=== PATIENT | male | born 1980 | race Two or more races ===

== ENCOUNTER 2016-12-23 12:46 | Inpatient (IN) | payer OTHER ==
[~2016-12-23] VITALS: Ht 180.3 cm; Wt 172.8 kg
[~2016-12-23 12:46] MED LIST: ATOR10TA PO; BLOO-697 IN; DABI150C PO; DIGO125T PO; DILT60TA19 PO; METF500T4 PO; METO25TA6 PO
--- NOTE | 2016-12-23 12:49 | NUR ---
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 PER RESCUE, PT WAS AFIB ON MONITOR DURING TRANSPORT. CP 9/10 SHARP RADIATING TO L ARM, NON-PROVOKED. RESP EVEN UNLABORED. SKIN WARM NONDIAPHORETIC. PT DOES NOT APPEAR IN ACUTE DISTRESS, A/OX4, CALM AND COOPERATIVE. IN ER BED 12 ON MONITOR.
[2016-12-23] MEDS ORDERED: ASPIRIN 81 MG TAB.CHEW ONE ×2 (12:55→13:09)
[2016-12-23] MEDS ORDERED: ONDANSETRON 4 MG TAB.RAPDIS SL ONE (13:00)
[2016-12-23] MEDS ORDERED: ASPIRIN 81 MG TAB.CHEW PO ONE (13:00)
[2016-12-23] MEDS ORDERED: MORPHINE SULFATE INJ 4 MG/ML DISP.SYRIN ONE (13:12)
[2016-12-23 13:22] LABS: BASOPHILS # (AUTO) 0.1 /CMM (0.0-0.2); EOSINOPHILS # (AUTO) 0.1 /CMM (0.0-0.7); EOSINOPHILS % (AUTO) 1.5 % (0.0-6.0); HEMATOCRIT 46 % (39-51); HEMOGLOBIN 15.1 g/dL (13.5-17.5); LYMPHOCYTES # (AUTO) 2.2 /CMM (0.8-4.8); MEAN CORPUSCULAR HEMOGLOBIN 28 PG (26.0-33.0); MEAN CORPUSCULAR HGB CONC 33 g/dl (31.0-36.0); MEAN CORPUSCULAR VOLUME 85 fL (80-96); MONOCYTES # (AUTO) 0.6 /CMM (0.1-1.30); MONOCYTES % (AUTO) 8.5 % (2.0-12.0); NEUTROPHILS # (AUTO) 3.6 /CMM (1.8-8.9); PLATELET COUNT (AUTO) 205 /CMM (150-450); RDW COEFFICIENT OF VARIATION 14.4 (11.5-15.0); RED BLOOD CELL COUNT(AUTO) 5.39 MIL/uL (4.5-6.0); WHITE BLOOD COUNT (AUTO) 6.6 K/uL (4.3-11.0)
[2016-12-23 13:28] LABS: CALCIUM, SERUM 8.6 mg/dL (8.5-10.1); CARBON DIOXIDE 29 mmol/L (21-32); CHLORIDE 101 mmol/L (98-107); CREATININE 0.8 mg/dL (0.6-1.3); GFR 110 mL/min (>60); GLUCOSE 283 mg/dL (74-106); POTASSIUM 3.9 mmol/L (3.5-5.1); SODIUM SERUM 136 mmol/L (136-145); UREA NITROGEN, BLOOD 7 mg/dL (7-18)
[2016-12-23] MEDS ORDERED: MORPHINE SULFATE INJ 2 MG/ML DISP.SYRIN IV ONE (13:30)
[2016-12-23 13:32] LABS: INR 1.03 (0.87-1.13); PROTHROMBIN TIME 10.7 SECS (9.5-12.7)
[2016-12-23 13:36] LABS: TROPONIN I < 0.017 ng/mL (0.00-0.056)
[2016-12-23] MEDS ORDERED: ONDANSETRON 4 MG TAB.RAPDIS ONE (13:43)
--- NOTE | 2016-12-23 13:50 | NUR ---
RESTING QUIETLY, VSS. NAD NOTED.
[2016-12-23] MEDS ORDERED: INSULIN REGULAR, HUMAN 100 UNIT/ML 10 ML VIAL SQ ONE (14:00)
[2016-12-23] MEDS ORDERED: INSULIN REGULAR, HUMAN 100 UNIT/ML 10 ML VIAL ONE (14:03)
--- NOTE | 2016-12-23 15:32 | NUR ---
RESTING QUIETLY, NAD NOTED. VSS. ALL NEEDS ATTENDED TO. REPORTS THAT THE PAIN DECREASED AFTER MORPHINE ADMIN BUT RETURNED AGAIN TO SEVERE PAIN OF THE SAME CHARACTER. PA NOTIFIED.
[2016-12-23] MEDS ORDERED: ACETAMINOPHEN ES 500 MG TABLET ONE (16:22)
[2016-12-23] MEDS ORDERED: ACETAMINOPHEN ES 500 MG TABLET PO ONE (16:30)
--- NOTE | 2016-12-23 16:36 | NUR ---
RM 104. CALLED FOR FOOD TRAY.
--- NOTE | 2016-12-23 16:40 | NUR ---
DIANN DANIELSON ON PHONE WITH DR CARVAJAL
[2016-12-23] MEDS ORDERED: ONDA4TAB5 PO (16:44)
[2016-12-23] MEDS ORDERED: PANT20TA2 PO (16:44)
[2016-12-23] MEDS ORDERED: INSU100I4 SQ (16:44)
[2016-12-23] MEDS ORDERED: ATOR20TA PO (16:44)
[2016-12-23] MEDS ORDERED: INSU100I19 SQ (16:44)
--- NOTE | 2016-12-23 17:06 | NUR ---
REPORT GIVEN TO JEAN RN FOR ADMISSION. PER JEAN, ROOM IS NOT CLEAN YET.
--- NOTE | 2016-12-23 17:46 | NUR ---
PT TRANSPORTED TO [facility] 104 IN STABLE CONDITION VIA ACLS PROTOCOL
[2016-12-23] MEDS ORDERED: ZOLPIDEM TARTRATE 5 MG TABLET PO PRN (18:00)
[2016-12-23] MEDS ORDERED: DEXTROSE 50%-WATER 50 ML DISP.SYRIN IV PRN (18:00)
[2016-12-23] MEDS ORDERED: ONDANSETRON HCL/PF 4 MG/2 ML VIAL IVP PRN (18:00)
[2016-12-23] MEDS ORDERED: MAGNESIUM HYDROXIDE 30 ML UDC PO PRN (18:00)
[2016-12-23] MEDS ORDERED: Z GUARD REMEDY 2 OZ OINT TP PRN (18:00)
[2016-12-23] MEDS ORDERED: MAG HYDROX/AL HYDROX/SIMETH 30 ML UDC PO PRN (18:00)
[2016-12-23] MEDS ORDERED: ACETAMINOPHEN 325 MG TABLET PO PRN (18:00)
[2016-12-23 18:01] VITALS: BP 116/84
[2016-12-23] MEDS: BLOOD SUGAR DIAGNOSTIC 1 EACH STRIP IN SCH ×2 (18:46→21:48)
[2016-12-23] MEDS: MORPHINE SULFATE INJ 2 MG/ML DISP.SYRIN IV PRN (18:47)
[2016-12-23] MEDS: INSULIN REGULAR, HUMAN 100 UNIT/ML 3 ML VIAL SQ PRN ×2 (18:52→21:53)
[2016-12-23 19:53] VITALS: BP 104/68
[2016-12-23 20:00] VITALS: BP 104/68
--- NOTE | 2016-12-23 20:00 | NUR ---
GAS DESULFURIZER NOTE PT IN BED EATING SANDWICH. A/O X 4, NO SOB, NO DISTRESS OR DISCOMFORT NOTED. DENIES PAIN. ON TELE A FIB, SR WITH BBB AND PVC'S HR 98. HL IN LT HAND #20 G INTACT AND PATENT. SIDE RAILS UP X 2 AND CALL LIGHT WITHIN REACH. CONTINUE TO MONITOR HIM.
--- NOTE | 2016-12-23 21:01 | NUR ---
STAVE MACHINE TENDER NOTE ON TELE PT HAD VTECH 3 SEC C/O SHARP PAIN. NORCO 5/325 MG PO GIVEN. PT HAD MORPHINE EARLIER. STAT EKG ORDERED ALSO LAB ORDERED. CONTINUE TO MONITOR.
[2016-12-23] MEDS: HYDROCODONE/APAP 5/325MG 1 EACH TABLET PO PRN (21:08)
[2016-12-23] MEDS: DILTIAZEM HCL 30 MG TABLET PO SCH (21:09)
--- NOTE | 2016-12-23 21:14 | NUR ---
QUALITY AUDITOR NOTE PER PT PAIN IS ON AND OFF. ON TELE SR HR 77. CONTINUE TO MONITOR HIM.
[2016-12-23 21:29] LABS: BASOPHILS # (AUTO) 0.1 /CMM (0.0-0.2); BASOPHILS % (AUTO) 0.8 % (0.0-2.0); EOSINOPHILS # (AUTO) 0.1 /CMM (0.0-0.7); EOSINOPHILS % (AUTO) 1.6 % (0.0-6.0); HEMATOCRIT 44 % (39-51); HEMOGLOBIN 14.7 g/dL (13.5-17.5); LYMPHOCYTES # (AUTO) 2.3 /CMM (0.8-4.8); LYMPHOCYTES % (AUTO) 36.3 % (20.0-44.0); MEAN CORPUSCULAR HEMOGLOBIN 29 PG (26.0-33.0); MEAN CORPUSCULAR HGB CONC 33 g/dl (31.0-36.0); MEAN CORPUSCULAR VOLUME 86 fL (80-96); MONOCYTES # (AUTO) 0.4 /CMM (0.1-1.30); MONOCYTES % (AUTO) 5.8 % (2.0-12.0); NEUTROPHILS # (AUTO) 3.6 /CMM (1.8-8.9); NEUTROPHILS % (AUTO) 55.5 % (43.0-81.0); PLATELET COUNT (AUTO) 194 /CMM (150-450); RDW COEFFICIENT OF VARIATION 14.2 (11.5-15.0); RED BLOOD CELL COUNT(AUTO) 5.17 MIL/uL (4.5-6.0); WHITE BLOOD COUNT (AUTO) 6.5 K/uL (4.3-11.0)
[2016-12-23 21:45] LABS: CALCIUM, SERUM 8.3 mg/dL (8.5-10.1); CARBON DIOXIDE 28 mmol/L (21-32); CHLORIDE 101 mmol/L (98-107); GFR 85 mL/min (>60); GLUCOSE 320 mg/dL (74-106); POTASSIUM 3.7 mmol/L (3.5-5.1); SODIUM SERUM 135 mmol/L (136-145); UREA NITROGEN, BLOOD 10 mg/dL (7-18)
[2016-12-23 21:51] LABS: ALANINE AMINOTRANSFERASE 79 U/L (12-78); ALBUMIN 3.1 g/dL (3.4-5.0); ALKALINE PHOSPHATASE 108 U/L (46-116); ASPARTATE AMINOTRANSFERASE 50 U/L (15-37); BILIRUBIN,TOTAL 0.6 mg/dL (0.2-1.0); MAGNESIUM 1.8 mg/dL (1.8-2.4); PHOSPHORUS 3.6 mg/dL (2.5-4.9); TOTAL PROTEIN, SERUM 6.7 g/dL (6.4-8.2)
[2016-12-23 21:53] LABS: TROPONIN I < 0.017 ng/mL (0.00-0.056)
[2016-12-23] MEDS: METOPROLOL TARTRATE 25 MG TABLET PO SCH (22:00)
--- NOTE | 2016-12-23 22:00 | NUR ---
CHEMICAL RADIATION TECHNICIAN NOTE PAIN SUBSIDED 08/14. PT AWAKE. CONTINUE TO MONITOR HIM.
--- NOTE | 2016-12-23 22:30 | NUR ---
RN NOTES: RECEIVED CALL BACK FROM DR MORGAN. INFORMED MD RE PATIENT'S CONDITION OF HAVING AN EPISODE OF VTACH AND CHEST PAIN. CHEST PAIN RATED 7/10 DESCRIBED SHARP, NON RADIATING. INFORMED MD RE RESULT OF STAT EKG, SR WITH BBB. RELAYED CHEM RESULTS WELL. MD WITH ORDER FOR 40 MEQS OF POTASSIUM AND 2 GMS OF MAGNESIUM IV AND JUST TO MANAGE PAIN ORDERED. PRIMARY RN DOMINGO AWARE. ORDERS TO BE CARRIED OUT. CONTINUOUSLY MONITORED PT.
[2016-12-23] MEDS ORDERED: POTASSIUM CHLORIDE 20 MEQ TAB.PRT.SR PO ONE ×2 (22:48→23:00)
[2016-12-23] MEDS ORDERED: Magnesium 1GM/D5W 100ML PREMIX 200 ML IV ONE (22:48)
[2016-12-23] MEDS ORDERED: IV SET PRIMARY PUMP SET 1 EA INFUS.SET MC ONE (22:49)
[2016-12-23] MEDS ORDERED: Magnesium 1GM/D5W 100ML PREMIX PIGGYBACK IV ONE (23:00)
[2016-12-24] VITALS: BP 108/67
[2016-12-24] MEDS ORDERED: Magnesium 1GM/D5W 100ML PREMIX PIGGYBACK IV ONE
[2016-12-24] MEDS: MORPHINE SULFATE INJ 2 MG/ML DISP.SYRIN IV PRN ×4 (01:34→20:55)
--- NOTE | 2016-12-24 01:37 | NUR ---
AMERICAN SIGN LANGUAGE TEACHER NOTE PT C/O CHEST AND ABD PAIN 8/10, DULL ACHING. MORPHINE SULFATE 2 MG IVP GIVEN. CONTINUE TO MONITOR HIM.
--- NOTE | 2016-12-24 02:05 | NUR ---
ESCALATOR MECHANIC NOTE PAIN SUBSIDED 09/14. PT DOZING OFF.
[2016-12-24 04:00] VITALS: BP 99/63
--- NOTE | 2016-12-24 04:51 | NUR ---
MANAGEMENT ASSOCIATE NOTE PT IN BED ASLEEP, AROUSABLE. NO DISTRESS OR DISCOMFORT NOTED. DENIES PAIN AT THIS TIME. ON TELE S ARRHYTHMIA, SB 59.
[2016-12-24] MEDS: BLOOD SUGAR DIAGNOSTIC 1 EACH STRIP IN SCH ×4 (05:31→22:03)
[2016-12-24] MEDS: INSULIN DETEMIR 100 UNIT/ML CARTRIDGE SQ SCH ×2 (05:32→16:39)
[2016-12-24] MEDS: INSULIN REGULAR, HUMAN 100 UNIT/ML 3 ML VIAL SQ PRN ×3 (05:34→22:04)
--- NOTE | 2016-12-24 06:25 | NUR ---
DUPLICATION SPECIALIST NOTE PT IN BED AWAKE. NO DISTRESS OR DISCOMFORT NOTED. DENIES PAIN. H/L INTACT AND PATENT LT HAND. SIDE RAILS UP X 2 AND CALL LIGHT WITHIN REACH. WILL ENDORSE TO DAY SHIFT NURSE FOR CONTINUE TO CARE.
[2016-12-24 06:49] LABS: BASOPHILS # (AUTO) 0.1 /CMM (0.0-0.2); BASOPHILS % (AUTO) 0.9 % (0.0-2.0); EOSINOPHILS # (AUTO) 0.1 /CMM (0.0-0.7); HEMATOCRIT 44 % (39-51); HEMOGLOBIN 14.4 g/dL (13.5-17.5); LYMPHOCYTES # (AUTO) 2.4 /CMM (0.8-4.8); LYMPHOCYTES % (AUTO) 39.1 % (20.0-44.0); MEAN CORPUSCULAR HEMOGLOBIN 28 PG (26.0-33.0); MEAN CORPUSCULAR HGB CONC 33 g/dl (31.0-36.0); MEAN CORPUSCULAR VOLUME 85 fL (80-96); MONOCYTES # (AUTO) 0.4 /CMM (0.1-1.30); MONOCYTES % (AUTO) 7.1 % (2.0-12.0); NEUTROPHILS # (AUTO) 3.1 /CMM (1.8-8.9); NEUTROPHILS % (AUTO) 50.9 % (43.0-81.0); PLATELET COUNT (AUTO) 193 /CMM (150-450); RDW COEFFICIENT OF VARIATION 15.1 (11.5-15.0); RED BLOOD CELL COUNT(AUTO) 5.11 MIL/uL (4.5-6.0)
[2016-12-24 07:07] LABS: CALCIUM, SERUM 8.2 mg/dL (8.5-10.1); CREATININE 0.9 mg/dL (0.6-1.3); MAGNESIUM 1.9 mg/dL (1.8-2.4)
[2016-12-24 08:00] VITALS: BP_SYST 124; BP_DIAS 64; BP_DIAS 68
--- NOTE | 2016-12-24 08:00 | NUR ---
TELE1/RN AM SHIFT INITIAL NOTES RECEIVED PT ASLEEP IN BED, PT A/O X 4, AROUSEABLE, DENIES ANY DISCOMFORT, NO ACUTE CHANGE OF CONDITION NOTED. ON ROOM AIR SATURATING @ 92%, LUNG SOUNDS CLEAR. ON TELE WITH SINUS RHYTHM, HR 64. IV SITE FLUSHED PATENT WITH NO S/S OF INFECTION. BS CHECKED, 260. PT IS COMFORTABLE AT TIS TIME. SCHEDULED AM MEDS TO BE GIVEN. CL WITHIN REACHED AND SAFETY MAINTAINED.
[2016-12-24] MEDS: PANTOPRAZOLE 40 MG TABLET.DR PO SCH (08:42)
[2016-12-24] MEDS: DILTIAZEM HCL 30 MG TABLET PO SCH ×4 (08:43→22:02)
[2016-12-24] MEDS: ATORVASTATIN 10 MG TABLET PO SCH (08:43)
[2016-12-24] MEDS: INSULIN LISPRO/ASPART 100 UNIT/ML CARTRIDGE SQ SCH ×3 (08:46→18:33)
[2016-12-24] MEDS: METOPROLOL TARTRATE 25 MG TABLET PO SCH ×2 (08:48→22:01)
[2016-12-24] MEDS: DABIGATRAN ETEXILATE MESYLATE 150 MG CAPSULE PO SCH ×2 (08:49→16:37)
[2016-12-24] MEDS ORDERED: METOPROLOL TARTRATE 25 MG TABLET PO SCH (09:00)
[2016-12-24] MEDS ORDERED: DILTIAZEM HCL 30 MG TABLET PO SCH ×2 (09:00)
[2016-12-24] MEDS ORDERED: DIGOXIN 0.125 MG TABLET PO SCH (09:00)
[2016-12-24 12:00] VITALS: BP 125/81
--- NOTE | 2016-12-24 12:15 | NUR ---
TELE1/RN ROUNDS - DR. ARNDT UPDATED PT'S CONDITION. PT SEEN & EXAMINED BY DR. ARNDT. NO NEW ORDERS RECEIVED AT THIS TIME. MONITORING CONTINUED.
[2016-12-24] MEDS: DIGOXIN 0.25 MG TABLET PO SCH (12:25)
[2016-12-24 16:00] VITALS: BP 128/75
--- NOTE | 2016-12-24 18:38 | NUR ---
TELE1/RN ROUNDS NO ACUTE CHANGE OF CONDITION NOTED. PT'S HEART RHYTHM REMAINS SINUS THROUGHOUT THE DAY. TWICE HAS GIVEN PRN MORPHINE FOR COMPLAINT OF CHEST PAIN RATED ABOUT 7-8/10, DR. ARNDT IS AWARE. PT TEACHING GIVEN REGARDING HEART DISEASE, DIET AND MEDICATIONS THROUGHOUT THE SHIFT, PT VERBALIZED UNDERSTANDING. MONITORING CONTINUED.
--- NOTE | 2016-12-24 19:05 | NUR ---
RN OPENING NOTES: RECEIVED PT ON BED AWAKE NOT IN APPARENT DISTRESS; ON ROOM AIR WITH EVEN AND UNLABORED BREATHING. NO COMPLAINTS AT THIS TIME. SR WITH BBB ON MONITOR WITH HR AT 62 BPM. IV ACCESS ON LEFT HAND G20 SL AT THIS TIME, PATENT AND INTACT, FLUSHING WELL. SAFETY MEASURES ENSURED. CALL LIGHT WITHIN REACH. CONTINUOUSLY MONITORED ACCORDINGLY. 1954 PT CALLED AND IS COMPLAINING OF CHEST PAIN DESCRIBED PRESSURE-LIKE PAIN; NON RADIATING. RATED 8/10 PLACED O2 ON 2LPM AT THIS TIME. TO MANAGE PAIN ORDERED. MONITORED FOR RESPONSE TO PAIN MEDS.
--- NOTE | 2016-12-24 19:07 | NUR ---
TELE1/RN AM SHIFT END NOTES ALL NEEDS MET. NO ACUTE CHANGE OF CONDITION NOTED DURING THE SHIFT. PT ENDORSED TO PM NURSE TO CONTINUE CARE. CL WITHIN REACHED AND SAFETY MAINTAINED.
[2016-12-24 20:00] VITALS: BP 118/68
[2016-12-25] VITALS (7 sets, daily range): BP systolic 105–127; BP diastolic 70–78
[2016-12-25] MEDS: HYDROCODONE/APAP 5/325MG 1 EACH TABLET PO PRN ×2 (01:46→08:27)
[2016-12-25] MEDS: MORPHINE SULFATE INJ 2 MG/ML DISP.SYRIN IV PRN ×4 (04:16→21:36)
--- NOTE | 2016-12-25 06:43 | NUR ---
RN NOTES: PATIENT REMAINS ON BED ASLEEP. NOT IN APPARENT DISTRESS. SB ON MONITOR HR AT 55 BPM. WITH OCCASIONAL COMPLAINTS OF HEADACHE AND CHEST PAIN. PRN PAIN MEDS GIVEN, NOTED EFFECTIVE. SAFETY MEASURES ENSURED. CONTINUOUSLY MONITORED. TO ENDORSE TO AM SHIFT RN.
[2016-12-25] MEDS: INSULIN DETEMIR 100 UNIT/ML CARTRIDGE SQ SCH ×2 (06:58→17:25)
[2016-12-25] MEDS: INSULIN LISPRO/ASPART 100 UNIT/ML CARTRIDGE SQ SCH ×3 (07:00→17:38)
[2016-12-25] MEDS: INSULIN REGULAR, HUMAN 100 UNIT/ML 3 ML VIAL SQ PRN ×4 (07:00→22:00)
[2016-12-25] MEDS: BLOOD SUGAR DIAGNOSTIC 1 EACH STRIP IN SCH ×4 (07:04→21:53)
--- NOTE | 2016-12-25 07:15 | NUR ---
RN INITIAL NOTES: Rec'd pt awake on bed, A/O x3, c/o chest pain 5/10. Pt on room air, saturating at 95%. Pt on telemonitor, SR w/ HR 71 bpm. Pt has L hand G 20 SL, flushed, patent & intact w/ no signs of infection/ infiltration noted. Provided comfort & safety measures. PRN pain meds given as ordered. Call light placed w/in reached. Bed kept low & in locked position. Needs attended. Will continue to monitor.
[2016-12-25 07:30] LABS: CALCIUM, SERUM 8.3 mg/dL (8.5-10.1); MAGNESIUM 1.8 mg/dL (1.8-2.4); PHOSPHORUS 4.2 mg/dL (2.5-4.9)
[2016-12-25] MEDS: PANTOPRAZOLE 40 MG TABLET.DR PO SCH (08:22)
[2016-12-25] MEDS: METOPROLOL TARTRATE 25 MG TABLET PO SCH ×2 (08:23→21:43)
[2016-12-25] MEDS: DILTIAZEM HCL 30 MG TABLET PO SCH ×3 (08:23→16:45)
[2016-12-25] MEDS: ATORVASTATIN 10 MG TABLET PO SCH (08:24)
[2016-12-25] MEDS: DABIGATRAN ETEXILATE MESYLATE 150 MG CAPSULE PO SCH ×2 (08:24→16:42)
[2016-12-25] MEDS: DIGOXIN 0.25 MG TABLET PO SCH (13:28)
--- NOTE | 2016-12-25 16:00 | NUR ---
RN NOTES: Pt seen & examined by JIMBO Santizo.
--- NOTE | 2016-12-25 17:02 | NUR ---
RN NOTES: Verified w/ Sukhdev, NET FINISHER, pt can stay overnight per pt's request as he lives alone. Needs PT eval prior to DC poss home or intermediate. As per CM Byron okay to stay for today.
--- NOTE | 2016-12-25 18:50 | NUR ---
RN CLOSING NOTES: No acute changes noted w/in shift. On telemonitor, still SR w/ HR 68 bpm. L hand G 20 SL, kept patent & intact w/ no signs of infection/ infiltration noted. Kept well rested. Call light placed w/in reached. Bed kept low & in locked position. Needs attended. Will endorse to PM RN for DAYANARA.
--- NOTE | 2016-12-25 19:30 | NUR ---
RN OPENING NOTES RECEIVED REPORT FROM DAYSHIFT RN. FOUND Pt AWAKE RESTING IN BED. Pt IS A/OX4, VERBAL, ABLE TO MAKE NEEDS KNOWN. NO S/S OF ACUTE DISTRESS OR SOB NOTED. IV ACCESS ON L HAND 20G, SL. SAFETY MEASURES IN PLACE. BED LOW, LOCKED, HOB ELEVATED, SIDE RAILS UP, CALL LIGHT AND BEDSIDE TABLE WITHIN REACH. WILL CONTINUE TO MONITOR Pt THROUGHOUT THE NIGHT.
--- NOTE | 2016-12-25 22:00 | NUR ---
BG 147. ADMINISTERED 2UN OF INSULIN PER SLIDING SCALE. PROVIDED SNACKS AT BEDSIDE.
[2016-12-26] VITALS: BP 131/68
[2016-12-26] MEDS: DILTIAZEM HCL 30 MG TABLET PO SCH ×2 (00:05→08:31)
[2016-12-26] MEDS: MORPHINE SULFATE INJ 2 MG/ML DISP.SYRIN IV PRN ×2 (01:35→06:28)
[2016-12-26 04:00] VITALS: BP 130/86
[2016-12-26] MEDS: BLOOD SUGAR DIAGNOSTIC 1 EACH STRIP IN SCH (06:36)
[2016-12-26] MEDS: INSULIN DETEMIR 100 UNIT/ML CARTRIDGE SQ SCH (06:39)
--- NOTE | 2016-12-26 06:40 | NUR ---
RN CLOSING NOTES NO SIGNIFICANT CHANGES. NO S/S OF ACUTE DISTRESS OR SOB NOTED. ALL NEEDS MET AND ATTENDED TO. SAFETY MEASURES CARRIED OUT. WILL ENDORSE TO DAYSHIFT RN FOR Pt's DAYANARA.
--- NOTE | 2016-12-26 06:44 | NUR ---
BG 255. ADMINISTERED SCHEDULED LEVEMIR 25UN. PROVIDED SNACKS AT BEDSIDE.
--- NOTE | 2016-12-26 07:15 | NUR ---
RN INITIAL NOTES: Rec'd pt awake on bed, A/O x3, denies chest pain/ discomfort. Pt on room air, saturating at 99%. Pt on telemonitor, SR w/ HR 64 bpm. Pt has L hand G 20 SL, flushed, patent & intact w/ no signs of infection/ infiltration noted. Pt anxious to go home. Informed him that MD will make their rounds this morning. Pt verbalized understanding. Provided comfort & safety measures. Call light placed w/in reached. Bed kept low & in locked position. Needs attended. Will continue to monitor.
[2016-12-26 08:00] VITALS: BP 143/78
[2016-12-26] MEDS: ATORVASTATIN 10 MG TABLET PO SCH (08:30)
[2016-12-26] MEDS: PANTOPRAZOLE 40 MG TABLET.DR PO SCH (08:30)
[2016-12-26] MEDS: METOPROLOL TARTRATE 25 MG TABLET PO SCH (08:32)
[2016-12-26] MEDS: DABIGATRAN ETEXILATE MESYLATE 150 MG CAPSULE PO SCH (08:32)
[2016-12-26] MEDS: INSULIN LISPRO/ASPART 100 UNIT/ML CARTRIDGE SQ SCH (08:33)
[2016-12-26] MEDS: INSULIN REGULAR, HUMAN 100 UNIT/ML 3 ML VIAL SQ PRN (08:34)
[2016-12-26 09:00] VITALS: BP 143/78
[2016-12-26] MEDS ORDERED: DILTIAZEM HCL CD 240 MG PO SCH (09:00)
--- NOTE | 2016-12-26 09:00 | NUR ---
RN NOTES: Pt verbalized wanting to go home at 10AM. JIMBO Santizo notified and informed the pt that JIMBO Santizo wanted to see him prior to DC.
--- NOTE | 2016-12-26 09:45 | NUR ---
RN NOTES: Pt still insisted to be DC now, agreed to sign AMA form. Risks explained to the pt. Pt verbalized understanding. JIMBO Santizo made aware.
--- NOTE | 2016-12-26 10:00 | NUR ---
FIRESETTER NOTES: Pt left facility AMA, form signed. Risk explained to him. DC instructions and documents provided and signed by the pt. Belongings sent w/ the pt. IV line access removed, pressure dressing applied, no signs of infection noted. ID band removed. Pt left facility in stable condition, ambulatory. Refused to be wheeled out of the unit.
== END 2016-12-26 13:55 | disposition left against medical advice (07) | DRG 201 ==
LOC: ER 12:47 → TELE1 17:13 → MEDSG1 12-26 09:12
PROVIDERS: ADMIT Internal Medicine; ATTEND Internal Medicine
DX: I48.91 Unspecified atrial fibrillation (principal); E66.01 Morbid (severe) obesity due to excess calories; E78.5 Hyperlipidemia, unspecified; Z91.19 Patient's noncompliance with other medical treatment and regimen; Z87.11 Personal history of peptic ulcer disease; Z86.711 Personal history of pulmonary embolism; K21.9 Gastro-esophageal reflux disease without esophagitis; I25.10 Atherosclerotic heart disease of native coronary artery without angina pectoris; E44.1 Mild protein-calorie malnutrition; I11.0 Hypertensive heart disease with heart failure; Z79.01 Long term (current) use of anticoagulants; Z79.4 Long term (current) use of insulin; I50.9 Heart failure, unspecified; Z86.718 Personal history of other venous thrombosis and embolism; Z68.43 Body mass index [BMI] 50.0-59.9, adult; E11.65 Type 2 diabetes mellitus with hyperglycemia; E88.09 Other disorders of plasma-protein metabolism, not elsewhere classified
CPT/HCPCS: 36415; 71010-TC; 80048-TC; 80053-TC; 80061-TC; 80162-TC; 82962-TC; 83735-TC; 84100-TC; 84484-TC; 85025-TC; 85730-TC; 87081-TC; 93307-TC; A4606; J1815; J2270; J2405; J3475; Q0162; Z7610

== ENCOUNTER 2017-01-17 00:59 | Inpatient (IN) | payer OTHER ==
[2017-01-17] VITALS (7 sets, daily range): BP systolic 117–130; BP diastolic 68–81
[~2017-01-17] VITALS: Ht 182.9 cm; Wt 171.5 kg
[~2017-01-17 00:59] MED LIST changes: -ATOR10TA PO; +ATOR20TA PO; -BLOO-697 IN; +INSU100I19 SQ; +INSU100I4 SQ; -METF500T4 PO; +PANT20TA2 PO
[2017-01-17] MEDS ORDERED: ACETAMINOPHEN 325 MG TABLET PO PRN (01:30)
[2017-01-17] MEDS ORDERED: Z GUARD REMEDY 2 OZ OINT TP PRN (01:30)
[2017-01-17] MEDS ORDERED: MAGNESIUM HYDROXIDE 30 ML UDC PO PRN (01:30)
[2017-01-17] MEDS ORDERED: DEXTROSE 50%-WATER 50 ML DISP.SYRIN IV PRN (01:30)
[2017-01-17] MEDS ORDERED: MAG HYDROX/AL HYDROX/SIMETH 30 ML UDC PO PRN (01:30)
[2017-01-17] MEDS ORDERED: ZOLPIDEM TARTRATE 5 MG TABLET PO PRN (01:30)
[2017-01-17] MEDS ORDERED: ONDANSETRON HCL/PF 4 MG/2 ML VIAL IVP PRN (01:30)
[2017-01-17] MEDS ORDERED: DILTIAZEM HCL 25 MG IV IV PRN (01:30)
--- NOTE | 2017-01-17 02:00 | NUR ---
RN NOTE; ADMITTED A 36Y/O M, A, OX4, BREATHING EVENLY,. NO SOB. AMBULATORY TO BED. NO C/O CP AT THIS TIME. VS:WNL. PT WAS PLACED ON SIGNING AGENT W/ REGULAR RHYTHM. NEEDS ATTENDED. CALL LIGHT WITHIN REACH .WILL CONT TO MONITOR AND WILL F/U W/ MD'S ORDER.
[2017-01-17] MEDS ORDERED: MORPHINE SULFATE INJ 2 MG/ML DISP.SYRIN ONE (02:56)
[2017-01-17] MEDS: MORPHINE SULFATE INJ 2 MG/ML DISP.SYRIN IV PRN ×5 (03:09→23:10)
--- NOTE | 2017-01-17 03:10 | NUR ---
MORPHINE 2MG GIVEN ORDERED FOR C/O SEVERE ABD PAIN RADIATING TOWARD HIS LEGS. WILL CONT TO MONITOR
[2017-01-17] MEDS ORDERED: ONDANSETRON HCL/PF 4 MG/2 ML VIAL ONE (03:15)
--- NOTE | 2017-01-17 03:20 | NUR ---
ZOFRAN GIVEN ORDERED FOR C/O NAUSEA. WILL CONT TO MONITOR
--- NOTE | 2017-01-17 06:32 | NUR ---
RN NOTE; PT IN BED SLEEPING, AROUSES EASILY. REMAINED COMFORTABLE AND FREE OF CHEST PAIN SINCE ADMISSION. NO ACUTE CHANGES. SR ON TELE MONITOR. NO S/S OF HYPO OR HYPERGLYCEMIA. CALL LIGHT WITHIN REACH. WILL CONT TO MONITOR AND WILL ENDORSE TO AM SHIFT FOR DAYANARA.
[2017-01-17] MEDS: BLOOD SUGAR DIAGNOSTIC 1 EACH STRIP IN SCH ×4 (06:51→22:07)
--- NOTE | 2017-01-17 07:33 | NUR ---
MS RN NOTES PATIENT IS A/OX4. NO SOB NOTED. NO S/S OF ACUTE DISTRESS NOTED. IV IS PATENT AND INTACT. BED IS IN LOWEST LOCKED POSITION. CALL LIGHT IS WITHIN REACH. WILL CONTINUE TO MONITOR THROUGHOUT SHIFT.
[2017-01-17] MEDS: INSULIN REGULAR, HUMAN 100 UNIT/ML 3 ML VIAL SQ PRN ×4 (08:47→22:07)
[2017-01-17] MEDS: INSULIN DETEMIR 100 UNIT/ML CARTRIDGE SQ SCH ×2 (08:49→18:11)
[2017-01-17] MEDS ORDERED: DABIGATRAN ETEXILATE MESYLATE 150 MG CAPSULE PO ONE (09:00)
[2017-01-17] MEDS: DILTIAZEM HCL 30 MG TABLET PO SCH ×2 (09:54→18:06)
[2017-01-17] MEDS: PANTOPRAZOLE 40 MG TABLET.DR PO SCH (09:54)
[2017-01-17] MEDS: DIGOXIN 0.125 MG TABLET PO SCH (09:55)
[2017-01-17] MEDS: METOPROLOL TARTRATE 25 MG TABLET PO SCH ×2 (09:55→18:10)
[2017-01-17] MEDS: INSULIN LISPRO/ASPART 100 UNIT/ML CARTRIDGE SQ SCH ×2 (13:00→18:12)
--- NOTE | 2017-01-17 15:25 | NUR ---
MS RN NOTES HUMALOG NOT ADMIN DUE TO IT BEING SENT LATE ON FLOOR AND CLOSE TO NEXT DOSE. CHARGE NURSE AWARE.
--- NOTE | 2017-01-17 19:30 | NUR ---
MS RN NOTES PATIENT A/OX4. NO S/S OF DISTRESS. NO S/S OF SOB. IV PATENT AND INTACT. BED IN LOW LOCKED POSITION. CALL LIGHT WITHIN REACH. ALL PT NEEDS HAVE BEEN MET. WILL ENDORSE TO PM SHIFT.
[2017-01-17] MEDS: DABIGATRAN ETEXILATE MESYLATE 150 MG CAPSULE PO SCH (21:08)
[2017-01-17] MEDS ORDERED: ATORVASTATIN 10 MG TABLET PO SCH (22:00)
[2017-01-18] MEDS: MORPHINE SULFATE INJ 2 MG/ML DISP.SYRIN IV PRN (05:11)
--- NOTE | 2017-01-18 06:24 | NUR ---
RN CLOSING NOTE PT IN BED AWAKE. NO SOB. RESPIRATION EVEN AND UNLABORED. NO CHEST PAIN NOTED. NO ACUTE DISTRESS. NO S/S OF HYPO OR HYPERGLYCEMIA. RIGHT WRIST #18 PATENT AND INTACT. FLUSHING WELL. ALL NEEDS ATTENDED AND ANTIICPATED. CALL LIGHT WITHIN REACH. WILL CONT TO MONITOR AND WILL ENDORSE TO AM SHIFT FOR DAYANARA.
[2017-01-18] MEDS: BLOOD SUGAR DIAGNOSTIC 1 EACH STRIP IN SCH (06:33)
[2017-01-18] MEDS: INSULIN DETEMIR 100 UNIT/ML CARTRIDGE SQ SCH (06:38)
[2017-01-18] MEDS: INSULIN REGULAR, HUMAN 100 UNIT/ML 3 ML VIAL SQ PRN (06:39)
[2017-01-18 07:28] LABS: BASOPHILS % (AUTO) 0.4 % (0.0-2.0); EOSINOPHILS # (AUTO) 0.1 /CMM (0.0-0.7); EOSINOPHILS % (AUTO) 1.6 % (0.0-6.0); HEMATOCRIT 44 % (39-51); HEMOGLOBIN 15.2 g/dL (13.5-17.5); LYMPHOCYTES # (AUTO) 2.3 /CMM (0.8-4.8); LYMPHOCYTES % (AUTO) 28.9 % (20.0-44.0); MEAN CORPUSCULAR HEMOGLOBIN 30 PG (26.0-33.0); MEAN CORPUSCULAR HGB CONC 34 g/dl (31.0-36.0); MEAN CORPUSCULAR VOLUME 86 fL (80-96); MONOCYTES # (AUTO) 0.6 /CMM (0.1-1.30); MONOCYTES % (AUTO) 7.5 % (2.0-12.0); NEUTROPHILS % (AUTO) 61.6 % (43.0-81.0); PLATELET COUNT (AUTO) 235 /CMM (150-450); RDW COEFFICIENT OF VARIATION 14.4 (11.5-15.0); RED BLOOD CELL COUNT(AUTO) 5.14 MIL/uL (4.5-6.0); WHITE BLOOD COUNT (AUTO) 8.1 K/uL (4.3-11.0)
--- NOTE | 2017-01-18 07:53 | NUR ---
MS RN NOTES PATIENT IS IN BED RESTING. PATIENT IS A/OX4. NO SOB OR ANY S/S OF DISTRESS NOTED. IV IS PATENT AND INTACT. CALL LIGHT IS WITHIN REACH. BED IS IN LOWEST LOCKED POSITION. WILL CONTINUE TO MONITOR THROUGHOUT SHIFT.
[2017-01-18 08:00] LABS: ALBUMIN 3.3 g/dL (3.4-5.0); BILIRUBIN,TOTAL 0.6 mg/dL (0.2-1.0); CALCIUM, SERUM 8.8 mg/dL (8.5-10.1); CREATININE 0.9 mg/dL (0.6-1.3); MAGNESIUM 1.6 mg/dL (1.8-2.4); PHOSPHORUS 4.5 mg/dL (2.5-4.9); POTASSIUM 4.2 mmol/L (3.5-5.1); TOTAL PROTEIN, SERUM 7.3 g/dL (6.4-8.2)
[2017-01-18 08:07] VITALS: BP 104/63
[2017-01-18] MEDS: PANTOPRAZOLE 40 MG TABLET.DR PO SCH (08:43)
[2017-01-18] MEDS: DILTIAZEM HCL 30 MG TABLET PO SCH (08:44)
[2017-01-18] MEDS: DIGOXIN 0.125 MG TABLET PO SCH (08:44)
[2017-01-18] MEDS: METOPROLOL TARTRATE 25 MG TABLET PO SCH ×2 (08:45→09:45)
[2017-01-18] MEDS: DABIGATRAN ETEXILATE MESYLATE 150 MG CAPSULE PO SCH (08:46)
[2017-01-18] MEDS: INSULIN LISPRO/ASPART 100 UNIT/ML CARTRIDGE SQ SCH (08:46)
[2017-01-18 09:45] VITALS: BP 113/64
[2017-01-18] MEDS ORDERED: Magnesium 1GM/D5W 100ML PREMIX 100 ML IV SCH (12:30)
--- NOTE | 2017-01-18 12:45 | NUR ---
MS RN NOTES PATIENT HAS BEEN DISCHARGED IN STABLE CONDITION. EDUCATION WAS PROVIDED TO THE PATIENT. INSTRUCTED PATIENT TO FOLLOW UP WITH PCP IN 1 WEEK AND CONTINUE ALL HOME MEDICATIONS INSTRUCTED BY ARRESTING GEAR OPERATOR. ARRESTING GEAR OPERATOR AWARE OF ALL ABNORMAL LABS. PROTOCOL FOLLOWED. IV REMOVED. ID BAND REMOVED. ALL BELONGINGS HAVE BEEN ACCOUNTED FOR. EDUCATION MATERIALS HAVE BEEN PROVIDED TO THE PATIENT ALONG WITH DISCHARGE SUMMARY AND PACKET.
== END 2017-01-18 12:45 | disposition home or self-care (01) | DRG 201 ==
LOC: TELE 00:59 → MED 13:05
PROVIDERS: ADMIT Internal Medicine; ATTEND Internal Medicine
DX: I48.91 Unspecified atrial fibrillation (principal); E43 Unspecified severe protein-calorie malnutrition; D68.59 Other primary thrombophilia; E66.2 Morbid (severe) obesity with alveolar hypoventilation; Z68.43 Body mass index [BMI] 50.0-59.9, adult; I50.9 Heart failure, unspecified; I11.0 Hypertensive heart disease with heart failure; I25.10 Atherosclerotic heart disease of native coronary artery without angina pectoris; E11.9 Type 2 diabetes mellitus without complications; G47.33 Obstructive sleep apnea (adult) (pediatric); E78.5 Hyperlipidemia, unspecified; K21.9 Gastro-esophageal reflux disease without esophagitis; Z86.711 Personal history of pulmonary embolism; Z87.11 Personal history of peptic ulcer disease; R07.89 Other chest pain; I25.2 Old myocardial infarction
CPT/HCPCS: 36415; 80053-TC; 80162-TC; 82962-TC; 83735-TC; 84100-TC; 84484-TC; 85025-TC; 87081-TC; J1815; J2270; J2405; J3490; Z7610

== ENCOUNTER 2017-01-23 13:30 | Emergency (ER) | payer OTHER ==
[~2017-01-23] VITALS: Ht 182.9 cm; Wt 156.5 kg
--- NOTE | 2017-01-23 13:55 | NUR ---
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 RESP IS EVEN AND UNLABORED WITH NAD NOTED. SKIN IS WARM AND DRY. PLACED ON MONITOR. AWAITING MD FOR EVAL.
[2017-01-23 14:10] LABS: BASOPHILS # (AUTO) 0.1 /CMM (0.0-0.2); BASOPHILS % (AUTO) 0.9 % (0.0-2.0); EOSINOPHILS # (AUTO) 0.1 /CMM (0.0-0.7); EOSINOPHILS % (AUTO) 1.3 % (0.0-6.0); HEMATOCRIT 45 % (39-51); HEMOGLOBIN 14.6 g/dL (13.5-17.5); LYMPHOCYTES # (AUTO) 1.4 /CMM (0.8-4.8); MEAN CORPUSCULAR HEMOGLOBIN 28 PG (26.0-33.0); MEAN CORPUSCULAR HGB CONC 33 g/dl (31.0-36.0); MEAN CORPUSCULAR VOLUME 85 fL (80-96); MONOCYTES # (AUTO) 0.5 /CMM (0.1-1.30); MONOCYTES % (AUTO) 5.7 % (2.0-12.0); NEUTROPHILS # (AUTO) 6.1 /CMM (1.8-8.9); NEUTROPHILS % (AUTO) 75.1 % (43.0-81.0); PLATELET COUNT (AUTO) 232 /CMM (150-450); RDW COEFFICIENT OF VARIATION 13.6 (11.5-15.0); RED BLOOD CELL COUNT(AUTO) 5.24 MIL/uL (4.5-6.0); WHITE BLOOD COUNT (AUTO) 8.2 K/uL (4.3-11.0)
[2017-01-23 14:20] LABS: CALCIUM, SERUM 8.2 mg/dL (8.5-10.1); CARBON DIOXIDE 28 mmol/L (21-32); CHLORIDE 101 mmol/L (98-107); CREATININE 0.9 mg/dL (0.6-1.3); GLUCOSE 188 mg/dL (74-106); POTASSIUM 3.7 mmol/L (3.5-5.1); SODIUM SERUM 136 mmol/L (136-145); UREA NITROGEN, BLOOD 8 mg/dL (7-18)
[2017-01-23 14:24] LABS: INR 1.01 (0.87-1.13); PROTHROMBIN TIME 10.5 SECS (9.5-12.7)
[2017-01-23 14:28] LABS: TROPONIN I < 0.017 ng/mL (0.00-0.056)
[2017-01-23] MEDS ORDERED: IV SET PRIMARY 1 EA INFUS.SET MC ONE (15:35)
[2017-01-23] MEDS ORDERED: IV NS 0.9% 500 ML IV ONE (15:35)
[2017-01-23] MEDS ORDERED: IV NS 0.9% 500 ML BAG IV ONE (16:00)
[2017-01-23] MEDS ORDERED: DILTIAZEM HCL 25 MG IV ONE (16:24)
[2017-01-23] MEDS ORDERED: DILTIAZEM HCL 25 MG IV IV ONE (16:30)
--- NOTE | 2017-01-23 16:40 | NUR ---
PAGED DR.JAMES JONES (MOTOR POOL DRIVER) AT [phone]
--- NOTE | 2017-01-23 18:05 | NUR ---
IV removed. Catheter intact and site benign. Pressure and 4x4 applied to site. No bleeding noted.
--- NOTE | 2017-01-23 18:05 | NUR ---
Patient discharged to home in stable condition. Written and verbal after care instructions given. Patient verbalizes understanding of instruction.
[2017-01-23 18:07] VITALS: BP 130/90
== END 2017-01-23 18:08 | disposition home or self-care (01) ==
LOC: ER 13:31
DX: R07.89 Other chest pain (principal); R00.2 Palpitations; E66.01 Morbid (severe) obesity due to excess calories; Z68.42 Body mass index [BMI] 45.0-49.9, adult; E11.9 Type 2 diabetes mellitus without complications; I48.91 Unspecified atrial fibrillation; I26.99 Other pulmonary embolism without acute cor pulmonale; I63.9 Cerebral infarction, unspecified; I11.0 Hypertensive heart disease with heart failure; I50.30 Unspecified diastolic (congestive) heart failure
CPT/HCPCS: 36415; 71010; 80048; 84484 ×2; 85025; 85730; 93005; 96374; 99285; A4606; J3490; J7040; Z7610

== ENCOUNTER 2017-03-12 21:35 | Emergency (ER) | payer OTHER ==
[~2017-03-12] VITALS: Ht 167.6 cm; Wt 104.3 kg
--- NOTE | 2017-03-12 23:07 | NUR ---
ADA FROM HOME DT RIGHT LEG PAIN. PER PATIENT HE HAD RIGHT LEG FRACTURE FEW WEEKS AGO. PATIENT IS ON NORCO AND RUN OUT OF IT. APPEARS IN NO APPARENT DISTRESS, RESPIRATION EVEN AND UNLABORED. SKIN IS WARM TO TOUCH AND NON DIAPHORETIC. AFEBRILE. VSS
[2017-03-12] MEDS ORDERED: HYDROCODONE/APAP 5/325MG 1 EACH TABLET ONE (23:25)
[2017-03-12] MEDS: HYDROCODONE/APAP 5/325MG 1 EACH TABLET PO ONE (23:26)
--- NOTE | 2017-03-12 23:26 | NUR ---
DAIRY BAR MANAGER AT
[2017-03-12 23:49] LABS: BASOPHILS % (AUTO) 0.3 % (0.0-2.0); EOSINOPHILS # (AUTO) 0.2 /CMM (0.0-0.7); EOSINOPHILS % (AUTO) 2.2 % (0.0-6.0); HEMATOCRIT 41 % (39-51); HEMOGLOBIN 13.9 g/dL (13.5-17.5); LYMPHOCYTES # (AUTO) 2.5 /CMM (0.8-4.8); MEAN CORPUSCULAR HEMOGLOBIN 30 PG (26.0-33.0); MEAN CORPUSCULAR HGB CONC 34 g/dl (31.0-36.0); MEAN CORPUSCULAR VOLUME 87 fL (80-96); MONOCYTES # (AUTO) 0.6 /CMM (0.1-1.30); MONOCYTES % (AUTO) 5.8 % (2.0-12.0); NEUTROPHILS # (AUTO) 7.4 /CMM (1.8-8.9); NEUTROPHILS % (AUTO) 68.7 % (43.0-81.0); PLATELET COUNT (AUTO) 237 /CMM (150-450); RDW COEFFICIENT OF VARIATION 14.9 (11.5-15.0); RED BLOOD CELL COUNT(AUTO) 4.69 MIL/uL (4.5-6.0); WHITE BLOOD COUNT (AUTO) 10.7 K/uL (4.3-11.0)
[2017-03-13 00:03] LABS: PROTHROMBIN TIME 10.7 SECS (9.5-12.7)
[2017-03-13 00:05] LABS: CALCIUM, SERUM 8.4 mg/dL (8.5-10.1); POTASSIUM 3.4 mmol/L (3.5-5.1)
--- NOTE | 2017-03-13 00:24 | NUR ---
STILL AWAITING U/S. NAD NOTED. RESP EVEN AND UNLABORED.
[2017-03-13] MEDS ORDERED: HYDROCODONE/APAP 5/325MG 1 EACH TABLET ONE (01:49)
[2017-03-13] MEDS: HYDROCODONE/APAP 5/325MG 1 EACH TABLET PO ONE (02:01)
--- NOTE | 2017-03-13 02:01 | NUR ---
Patient discharged to home in stable condition. Written and verbal after care instructions given. Patient verbalizes understanding of instruction. Ambulatory with a steady gait
[2017-03-13 02:02] VITALS: BP 129/78
== END 2017-03-13 02:03 | disposition home or self-care (01) ==
LOC: ER 21:35
DX: M79.671 Pain in right foot (principal); G89.29 Other chronic pain; E11.9 Type 2 diabetes mellitus without complications; E66.01 Morbid (severe) obesity due to excess calories; I11.0 Hypertensive heart disease with heart failure; I48.91 Unspecified atrial fibrillation; I50.9 Heart failure, unspecified; M10.9 Gout, unspecified; Z79.01 Long term (current) use of anticoagulants; Z79.4 Long term (current) use of insulin; Z86.711 Personal history of pulmonary embolism; Z86.718 Personal history of other venous thrombosis and embolism; Z86.73 Personal history of transient ischemic attack (TIA), and cerebral infarction without residual deficits
CPT/HCPCS: 36415; 80048-TC; 85025-TC; 85730-TC; 93971-TC; A4606; Z7610

== ENCOUNTER 2017-10-13 11:23 | Inpatient (IN) | payer OTHER ==
[~2017-10-13] VITALS: Ht 180.3 cm; Wt 167.0 kg
--- NOTE | 2017-10-13 11:25 | NUR ---
PT BIBRA TO ER BED 11 C/O OF L SIDED CP R/T UPPER BACK. PT WAS AT THE [facility]INDU[facility] AND FAINTED FALLING HEAD FIRST. HEMATOMA NOTED. HX OF AFIB AND DIABETES. GOWNED AND PLACED ON MONITOR. AWAITING MD MILNER.
--- NOTE | 2017-10-13 11:36 | NUR ---
DR JEAN AT BEDSIDE FOR EVAL.
--- NOTE | 2017-10-13 11:40 | NUR ---
IV LINE STARTED BLOOD DRAWN AND SENT TO LAB.
[2017-10-13] MEDS ORDERED: DILTIAZEM HCL 25 MG IV ONE (11:45)
[2017-10-13] MEDS ORDERED: DILTIAZEM HCL 25 MG IV IV ONE (12:00)
[2017-10-13] MEDS ORDERED: IV NS 0.9% 500 ML BAG IV ONE (12:00)
[2017-10-13] MEDS ORDERED: HYDROMORPHONE 1 MG/1 ML DISP.SYRIN IV ONE (12:00)
[2017-10-13] MEDS ORDERED: HYDROMORPHONE INJ 2 MG/ML DISP.SYRIN ONE (12:01)
[2017-10-13 12:02] LABS: CALCIUM, SERUM 8.8 mg/dL (8.5-10.1); CARBON DIOXIDE 25 mmol/L (21-32); CHLORIDE 100 mmol/L (98-107); CREATININE 1.1 mg/dL (0.6-1.3); GLUCOSE 332 mg/dL (74-106); POTASSIUM 3.9 mmol/L (3.5-5.1); SODIUM SERUM 134 mmol/L (136-145); UREA NITROGEN, BLOOD 11 mg/dL (7-18)
[2017-10-13 12:05] LABS: BASOPHILS # (AUTO) 0.1 /CMM (0.0-0.2); BASOPHILS % (AUTO) 0.5 % (0.0-2.0); EOSINOPHILS # (AUTO) 0.2 /CMM (0.0-0.7); EOSINOPHILS % (AUTO) 1.8 % (0.0-6.0); HEMATOCRIT 46 % (39-51); LYMPHOCYTES # (AUTO) 1.8 /CMM (0.8-4.8); LYMPHOCYTES % (AUTO) 16.9 % (20.0-44.0); MEAN CORPUSCULAR HEMOGLOBIN 30 PG (26.0-33.0); MEAN CORPUSCULAR HGB CONC 35 g/dl (31.0-36.0); MEAN CORPUSCULAR VOLUME 85 fL (80-96); MONOCYTES # (AUTO) 0.7 /CMM (0.1-1.30); MONOCYTES % (AUTO) 6.3 % (2.0-12.0); NEUTROPHILS # (AUTO) 7.8 /CMM (1.8-8.9); NEUTROPHILS % (AUTO) 74.5 % (43.0-81.0); PLATELET COUNT (AUTO) 255 /CMM (150-450); RDW COEFFICIENT OF VARIATION 12.2 (11.5-15.0); WHITE BLOOD COUNT (AUTO) 10.6 K/uL (4.3-11.0)
--- NOTE | 2017-10-13 12:07 | NUR ---
RADIOLOGY AT BEDSIDE FOR CHEST XRAY.
[2017-10-13 12:12] LABS: TROPONIN I < 0.017 ng/mL (0.00-0.056)
[2017-10-13] MEDS ORDERED: ASPI-1169 PO (12:35)
[2017-10-13] MEDS ORDERED: LINA5TAB PO (12:35)
[2017-10-13] MEDS ORDERED: CARV25TA2 PO (12:35)
--- NOTE | 2017-10-13 13:20 | NUR ---
PAGED EPIC FOR PANEL
--- NOTE | 2017-10-13 13:25 | NUR ---
CALLED NURSE SUP FOR TELE BED
[2017-10-13] MEDS ORDERED: IV NS 0.9% 1,000 ML IV PRN (14:03)
[2017-10-13] MEDS ORDERED: DEXTROSE 50%-WATER 50 ML DISP.SYRIN IV PRN (14:30)
[2017-10-13] MEDS ORDERED: ONDANSETRON HCL/PF 4 MG/2 ML VIAL IVP PRN (14:30)
[2017-10-13] MEDS ORDERED: MAGNESIUM HYDROXIDE 30 ML UDC PO PRN (14:30)
[2017-10-13] MEDS ORDERED: ACETAMINOPHEN 325 MG TABLET PO PRN (14:30)
[2017-10-13] MEDS ORDERED: MAG HYDROX/AL HYDROX/SIMETH 30 ML UDC PO PRN (14:30)
[2017-10-13] MEDS ORDERED: INSULIN DETEMIR 100 UNIT/ML CARTRIDGE SQ SCH (17:00)
[2017-10-13] MEDS ORDERED: METOPROLOL TARTRATE 25 MG TABLET PO SCH (17:00)
--- NOTE | 2017-10-13 17:45 | NUR ---
REPORT GIVEN TO NURSE. PT AWAITING TRANSFER TO FLOOR.
[2017-10-13] MEDS ORDERED: NITROGLYCERIN 0.4 MG/TAB BOTTLE SL ONE (18:10)
--- NOTE | 2017-10-13 18:17 | NUR ---
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 HE WILL BE ADMITTED FOR SYNCOPE SECONDARY TO CHEST PAIN. PT IS A/O X3. NO SOB NOTED. BREATHING IS EVEN AND UNLABORED. PT IS SR ON THE TELE MONITOR WITH A HR OF 75. HE CONTINUES TO COMPLAIN OF CHEST PAIN RATED AN 8/10. PER ER NURSE, PT;S BLOOD SUGAR WAS IN THE HIGH 300S PRIOR TO HIS DINNER HOWEVER NO COVERAGE WAS GIVEN. PER ER NURSE, PT'S ADMISSION PACKET IS BEING PREPARED AND THEREFORE HE DOES NOT HAVE AN IDENTIFICATION BAND AT THIS TIME. CHARGE NURSE MADE AWARE AND CALLED ADMITTING. PHARMACY MADE AWARE THAT PT JUST ARRIVED AND SATED THAT HIS MEDICATIONS WILL BE ADJUSTED ACCORDINGLY. VITALS STABLE. PT ORIENTED TO ROOM. BED IN LOW LOCKED POSITION, SIDE RAILS UP X2, CALL LIGHT WITHIN REACH. WILL AWAIT ADMISSION PACKET/WRISTBAND AND ENDORSE TO NIGHTSHIFT NURSE TO COMPLETE ADMISSION
[2017-10-13] MEDS ORDERED: DABIGATRAN ETEXILATE MESYLATE 150 MG CAPSULE PO SCH (18:21)
[2017-10-13 18:53] VITALS: BP 123/68
--- NOTE | 2017-10-13 19:00 | NUR ---
TANK CAR CLEANER NOTE RECEIVED PATIENT AWAKE AND ALERT IN BED. ABLE TO MAKE NEEDS KNOWN. DENIES CHEST PAIN AT THIS TIME. STILL WAITING FOR ID BAND FROM ADMITTING. IV SITE INTACT, WITH NO REDNESS NOTED. SKIN CHECK DONE. NO BREAKDOWN OR BRUISING NOTED. ORIENTED TO ROOM AND TO UNIT. ALL BELONGINGS CHECKED AND ACCOUNTED FOR. BED LOCKED AND IN LOWEST POSITION. SIDE RAILS UP, CALL LIGHT WITHIN REACH. WILL CONTINUE TO MONITOR.
[2017-10-13] MEDS: MORPHINE SULFATE INJ 4 MG/ML DISP.SYRIN IV PRN ×2 (19:34→23:44)
[2017-10-13] MEDS: BLOOD SUGAR DIAGNOSTIC 1 EACH STRIP IN SCH ×2 (19:37→21:46)
[2017-10-13] MEDS: INSULIN ASPART/LISPRO 100 UNIT/ML CARTRIDGE SQ SCH (19:40)
--- NOTE | 2017-10-13 19:43 | NUR ---
CASHIER SUPERVISOR NOTES 1700 MEDICATIONS ALONG WITH 1821 MEDICATIONS JUST ADMINISTERED PT'S ADMISSION PACKET AND IDENTIFICATION BAND JUST ARRIVED. BLOOD SUGAR TAKEN AND DISCUSSED WITH NIGHTSHIFT NURSE. NIGHTSHIFT NURSE REMINDED TO FOLLOW UP WITH [facility] MEDICATION IT IS NOT ON THE UNIT. PT STABLE AT THIS TIME. ENDORSED TO NIGHTSHIFT NURSE FOR DAYANARA
[2017-10-13 20:00] VITALS: BP 124/84
[2017-10-13] MEDS: ATORVASTATIN 10 MG TABLET PO SCH (21:46)
[2017-10-13] MEDS ORDERED: ZOLPIDEM TARTRATE 5 MG TABLET PO PRN (22:00)
[2017-10-13] MEDS: INSULIN REGULAR, HUMAN 100 UNIT/ML 3 ML VIAL SQ PRN (22:03)
[2017-10-13] MEDS: DABIGATRAN ETEXILATE MESYLATE 75 MG CAPSULE PO SCH (22:06)
[2017-10-13] MEDS: CARVEDILOL 12.5 MG TABLET PO SCH (22:07)
--- NOTE | 2017-10-13 23:00 | NUR ---
ACID TANK CLEANER NOTE NOTIFIED REGARDING CHEST PAIN. NO NEW ORDERS AT THIS TIME. NO NITRO ORDERED. WILL CONTINUE TO MONITOR PATIENT CLOSELY.
--- NOTE | 2017-10-13 23:21 | NUR ---
SALVAGE GRINDER NOTE PATIENT AMBULATED TO BATHROOM WITHOUT USING CALL LIGHT OR ASKING FOR ASSISTANCE. WHEN CHECKING ON PATIENT, HE WAS FOUND LEANING AGAINST THE BATHROOM WALL STATING THAT HE FELT DIZZY. HE DID NOT FALL. SAT PATIENT IN CHAIR. VS WNL. OXYGEN SAT 98% ON RA. INSTRUCTED PATIENT TO NOT GET OUT OF BED WITHOUT ASSISTANCE, AND TO USE CALL LIGHT AT ALL TIMES. REINFORCED TO PATIENT THAT WE ARE HERE TO HELP HIM AND HE CAN CALL US FOR ANYTHING. PATIENT VERBALIZED UNDERSTANDING. ASSISTED PATIENT BACK TO BED. WILL CONTINUE TO MONITOR CLOSELY.
--- NOTE | 2017-10-13 23:40 | NUR ---
HEAD AUTOMATIC SAWYER NOTE PATIENT STATES THAT HE IS HAVING CHEST PAIN. WILL ADMINISTER MORPHINE ORDERED AND NOTIFY MD.
[2017-10-14] VITALS: BP 131/89
[2017-10-14 04:00] VITALS: BP 104/46
[2017-10-14] MEDS: MORPHINE SULFATE INJ 4 MG/ML DISP.SYRIN IV PRN ×4 (04:23→23:54)
--- NOTE | 2017-10-14 06:21 | NUR ---
CUSTOMER SUPPLY CHAIN ANALYST NOTE PATIENT STABLE. ALL NEEDS MET AND ATTENDED TO. DENIES ANY CHEST PAIN AT THIS TIME. WILL ENDORSE TO DAY SHIFT FOR DAYANARA.
[2017-10-14] MEDS: BLOOD SUGAR DIAGNOSTIC 1 EACH STRIP IN SCH ×4 (06:31→21:08)
[2017-10-14] MEDS: PANTOPRAZOLE 40 MG TABLET.DR PO SCH (06:31)
[2017-10-14] MEDS: INSULIN GLARGINE, 100 UNIT/ML CARTRIDGE SQ SCH ×2 (06:31→17:28)
[2017-10-14 06:32] LABS: BASOPHILS % (AUTO) 0.5 % (0.0-2.0); EOSINOPHILS # (AUTO) 0.2 /CMM (0.0-0.7); EOSINOPHILS % (AUTO) 2.4 % (0.0-6.0); HEMATOCRIT 40 % (39-51); HEMOGLOBIN 13.8 g/dL (13.5-17.5); LYMPHOCYTES # (AUTO) 2.4 /CMM (0.8-4.8); MEAN CORPUSCULAR HEMOGLOBIN 30 PG (26.0-33.0); MEAN CORPUSCULAR HGB CONC 34 g/dl (31.0-36.0); MEAN CORPUSCULAR VOLUME 87 fL (80-96); MONOCYTES # (AUTO) 0.6 /CMM (0.1-1.30); MONOCYTES % (AUTO) 5.9 % (2.0-12.0); NEUTROPHILS # (AUTO) 6.3 /CMM (1.8-8.9); NEUTROPHILS % (AUTO) 66.2 % (43.0-81.0); PLATELET COUNT (AUTO) 211 /CMM (150-450); RDW COEFFICIENT OF VARIATION 13.8 (11.5-15.0); WHITE BLOOD COUNT (AUTO) 9.5 K/uL (4.3-11.0)
[2017-10-14] MEDS: INSULIN REGULAR, HUMAN 100 UNIT/ML 3 ML VIAL SQ PRN ×4 (06:32→21:23)
[2017-10-14 06:42] LABS: CARBON DIOXIDE 29 mmol/L (21-32); CHLORIDE 100 mmol/L (98-107); CREATININE 0.9 mg/dL (0.6-1.3); GLUCOSE 218 mg/dL (74-106); MAGNESIUM 1.6 mg/dL (1.8-2.4); PHOSPHORUS 4.4 mg/dL (2.5-4.9); POTASSIUM 3.7 mmol/L (3.5-5.1); SODIUM SERUM 135 mmol/L (136-145); UREA NITROGEN, BLOOD 11 mg/dL (7-18)
[2017-10-14 06:49] LABS: CALCIUM, SERUM 8.3 mg/dL (8.5-10.1)
[2017-10-14 06:56] LABS: DIGOXIN < 0.20 ng/mL (0.90-2.00)
[2017-10-14 07:22] LABS: CHOLESTEROL 77 mg/dL (<200); HDL CHOLESTEROL 28 mg/dL (40-60); LDL 50 mg/dL (0-99); TRIGLYCERIDES 85 mg/dL (30-150)
--- NOTE | 2017-10-14 07:30 | NUR ---
STONEWORK SUPERVISOR OPENING NOTES RECEIVED PATIENT IN BED AWAKE, A/O X 3 IN NO ACUTE SIGNS OF DISTRESS. VERBALLY RESPONSIVE, DENIES CHEST PAIN OR ANY DISCOMFORTS AT THIS TIME. ON ROOM AIR, BREATHING EVEN AND UNLABORED. ON TELE-MONITORING WITH CURRENT READING OF SR WITH HR OF 74. IV SITE ON LFA INTACT, WITH NO REDNESS NOTED. BED LOCKED AND IN LOWEST POSITION WIT SIDE RAILS UP X2. CALL LIGHT WITHIN REACH. WILL CONTINUE TO MONITOR.
[2017-10-14 08:00] VITALS: BP 104/59
[2017-10-14] MEDS: INSULIN ASPART/LISPRO 100 UNIT/ML CARTRIDGE SQ SCH ×3 (08:10→18:23)
[2017-10-14] MEDS: Magnesium 1GM/D5W 100ML PREMIX 100 ML IV SCH ×2 (08:16→09:58)
[2017-10-14] MEDS: DABIGATRAN ETEXILATE MESYLATE 75 MG CAPSULE PO SCH ×2 (08:17→17:30)
[2017-10-14] MEDS: LINAGLIPTIN 5 MG TABLET PO SCH (08:17)
[2017-10-14] MEDS: HYDROCODONE/APAP 5/325MG 1 EACH TABLET PO PRN ×2 (08:17→21:08)
[2017-10-14] MEDS: ASPIRIN 81 MG TAB.CHEW PO SCH (08:18)
[2017-10-14] MEDS: DILTIAZEM HCL 30 MG TABLET PO SCH ×2 (08:18→17:00)
[2017-10-14] MEDS: CARVEDILOL 12.5 MG TABLET PO SCH ×2 (08:19→21:09)
[2017-10-14 08:48] LABS: TROPONIN I < 0.017 ng/mL (0.00-0.056)
--- NOTE | 2017-10-14 12:35 | NUR ---
RN NOTES PT SEEN AND EVALUATED BY DR NAPOLES WITH ORDER TO DO MRI W/O CONTRAST. MRI CHECKLIST DONE. CHEMISTRY LECTURER CAME AND SAID THAT PT IS TOO BIG AND HEAVY, 375 LBS AND WONT FIT IN THEIR MACHINE. HE SAID THAT HE WILL CONTACT YOU. CALLED DR NAPOLES AND LEFT MESSAGE. AWAITING FOR RETURN CALL. WILL CONTINUE TO MONITOR.
[2017-10-14] MEDS: DIGOXIN 0.125 MG TABLET PO SCH (13:19)
--- NOTE | 2017-10-14 15:51 | NUR ---
RN NOTES MRI CANCELLED.
[2017-10-14 16:00] VITALS: BP 112/57
--- NOTE | 2017-10-14 17:00 | NUR ---
spoke with patient, stated he lives at home with his father. He is ambulatory and independent with adl's. Has no DME or homehealth reported. Current plan is to return home once discharge. Addendum: 10/14/17 at 1700 by KAYE DAVILA RN Amended: Links added.
--- NOTE | 2017-10-14 18:49 | NUR ---
MS RN CLOSING NOTES PATIENT AWAKE AND RESTING IN BED. A/O X 3, SAME ABLE TO MAKE NEEDS KNOWN. DIABETIC STATUS CLOSELY MONITORED. ON ROOM AIR, BREATHING EVEN AND UNLABORED. IV ACCES ON LFA INTACT AND PATENT, NO REDNESS OR PHLEBITIS NOTED AT SITE. HOB KEPT ELEVATED. BED LOCKED AND IN LOWEST POSITION WIT SIDE RAILS UP X2. CALL LIGHT AND BEDSIDE TABLE KEPT WITHIN EASY REACH OF PT. ALL REQUIRED NURSING CARE RENDERED. WILL ENDOSRED TO TREE SCOUT NURSE FOR DAYANARA. .
--- NOTE | 2017-10-14 19:30 | NUR ---
MS RN NOTE RECEIVED PATIENT AWAKE AND ALERT IN BED. ABLE TO MAKE NEEDS KNOWN. PATIENT STATES HE IS HAVING 5/10 GENERALIZED PAIN. RELAXATION TECHNIQUES PROVIDED. WILL ADMINISTER MEDICATION ORDERED. IV SITE INTACT, WITH NO REDNESS OR INFILTRATION NOTED. BED LOCKED AND IN LOWEST POSITION. SIDE RAILS UP, CALL LIGHT WITHIN REACH. WILL CONTINUE TO MONITOR.
[2017-10-14 20:00] VITALS: BP 119/75
[2017-10-14] MEDS ORDERED: DABIGATRAN ETEXILATE MESYLATE 75 MG CAPSULE PO SCH (21:00)
[2017-10-14] MEDS: ATORVASTATIN 10 MG TABLET PO SCH (21:08)
[2017-10-14 22:00] VITALS: BP 119/75
--- NOTE | 2017-10-15 06:02 | NUR ---
MS RN NOTE PATIENT STABLE. ALL NEEDS MET AND ATTENDED TO.WILL ENDORSE TO DAY SHIFT FOR DAYANARA.
[2017-10-15] MEDS: MORPHINE SULFATE INJ 4 MG/ML DISP.SYRIN IV PRN ×3 (06:10→21:41)
[2017-10-15] MEDS: INSULIN GLARGINE, 100 UNIT/ML CARTRIDGE SQ SCH ×2 (06:17→16:47)
--- NOTE | 2017-10-15 07:18 | NUR ---
MS RN OPENING NOTES RECEIVED PATIENT AWAKE IN BED IN NO ACUTE SIGNS OF DISTRESS. A/O X 3. ABLE TO MAKE NEEDS KNOWN, DENIES CHEST PAIN OR ANY DISCOMFORTS AT THIS TIME. ON ROOM AIR, BREATHING EVEN AND UNLABORED. IV ACCESS ON LFA INTACT AND PATENT WITH NO REDNESS NOTED AT SITE. BED LOCKED AND IN LOWEST POSITION WITH SIDE RAILS UP X2. CALL LIGHT WITHIN REACH. WILL CONTINUE TO MONITOR.
[2017-10-15 07:36] LABS: CALCIUM, SERUM 8.2 mg/dL (8.5-10.1); CREATININE 0.8 mg/dL (0.6-1.3); POTASSIUM 3.9 mmol/L (3.5-5.1)
[2017-10-15] MEDS: BLOOD SUGAR DIAGNOSTIC 1 EACH STRIP IN SCH ×4 (07:49→21:41)
[2017-10-15] MEDS: INSULIN REGULAR, HUMAN 100 UNIT/ML 3 ML VIAL SQ PRN ×3 (07:50→21:48)
[2017-10-15] MEDS: PANTOPRAZOLE 40 MG TABLET.DR PO SCH (07:52)
[2017-10-15 08:00] VITALS: BP 99/59
[2017-10-15] MEDS: INSULIN ASPART/LISPRO 100 UNIT/ML CARTRIDGE SQ SCH ×3 (08:06→18:11)
[2017-10-15] MEDS: CARVEDILOL 12.5 MG TABLET PO SCH ×2 (09:00→21:40)
[2017-10-15] MEDS: DILTIAZEM HCL 30 MG TABLET PO SCH ×2 (09:00→17:10)
[2017-10-15] MEDS: LINAGLIPTIN 5 MG TABLET PO SCH (09:32)
[2017-10-15] MEDS: DABIGATRAN ETEXILATE MESYLATE 75 MG CAPSULE PO SCH ×2 (09:33→17:11)
[2017-10-15] MEDS: ASPIRIN 81 MG TAB.CHEW PO SCH (09:33)
[2017-10-15] MEDS: HYDROCODONE/APAP 5/325MG 1 EACH TABLET PO PRN (12:00)
[2017-10-15] MEDS: DIGOXIN 0.125 MG TABLET PO SCH (13:15)
[2017-10-15 16:00] VITALS: BP 120/70
--- NOTE | 2017-10-15 16:47 | NUR ---
RN NOTES PATIENT WITH BLOOD SUGAR OF 107 MGDL, NO INSULIN COVERAGE GIVEN AND PATIENT REFUSED INSULIN LANTUS 35U. WILL CONTINUE TO MONITOR.
--- NOTE | 2017-10-15 18:27 | NUR ---
MS RN CLOSING NOTES PATIENT IN BED PLAYING GAME ON HIS CELLPHONE. A/O X 3, SAME ABLE TO MAKE NEEDS KNOWN. PT TOLERATING ROOM AIR WITH NO ACUTE RESPIRATORY DISTRESS NOTED. IV ACCESS ON LFA INTACT AND PATENT, NO REDNESS OR PHLEBITIS NOTED AT SITE. HOB KEPT ELEVATED. BED LOCKED AND IN LOWEST POSITION WIT SIDE-RAILS UP X2. CALL LIGHT AND BEDSIDE TABLE KEPT WITHIN EASY REACH OF PT. DIABETIC STATUS CLOSELY MONITORED. ALL NEEDS AND CARE PROVIDED WELL. WILL ENDORSED TO IT RISK ADVISOR NURSE FOR DAYANARA. .
--- NOTE | 2017-10-15 19:30 | NUR ---
MS RN NOTE RECEIVED PATIENT AWAKE AND ALERT IN BED. ABLE TO MAKE NEEDS KNOWN. IV SITE INTACT, WITH NO REDNESS OR INFILTRATION NOTED. BED LOCKED AND IN LOWEST POSITION. SIDE RAILS UP, CALL LIGHT WITHIN REACH. WILL CONTINUE TO MONITOR.
[2017-10-15 20:30] VITALS: BP 125/68
[2017-10-15] MEDS: ATORVASTATIN 10 MG TABLET PO SCH (21:39)
[2017-10-15 22:00] VITALS: BP 125/68
[2017-10-16] MEDS: HYDROCODONE/APAP 5/325MG 1 EACH TABLET PO PRN ×2 (02:17→10:41)
[2017-10-16] MEDS: MORPHINE SULFATE INJ 4 MG/ML DISP.SYRIN IV PRN (05:41)
--- NOTE | 2017-10-16 06:13 | NUR ---
MS RN NOTE PATIENT STABLE. ALL NEEDS MET AND ATTENDED TO.WILL ENDORSE TO DAY SHIFT FOR DAYANARA.
[2017-10-16] MEDS: BLOOD SUGAR DIAGNOSTIC 1 EACH STRIP IN SCH ×2 (06:56→12:48)
[2017-10-16] MEDS: INSULIN GLARGINE, 100 UNIT/ML CARTRIDGE SQ SCH (06:56)
[2017-10-16] MEDS: PANTOPRAZOLE 40 MG TABLET.DR PO SCH (06:56)
--- NOTE | 2017-10-16 07:20 | NUR ---
MS RN OPENING NOTES RECEIVED PATIENT AWAKE IN BED IN NO ACUTE SIGNS OF DISTRESS. A/O X 3. ABLE TO MAKE NEEDS KNOWN, DENIES CHEST PAIN OR ANY DISCOMFORTS AT THIS TIME. ON ROOM AIR, RESPIRATIONS EVEN AND UNLABORED. IV ACCESS ON LFA INTACT AND PATENT WITH NO REDNESS NOTED AT SITE. BED LOCKED AND IN LOWEST POSITION WITH SIDE RAILS UP X2. CALL LIGHT WITHIN REACH. WILL CONTINUE TO MONITOR.
[2017-10-16 08:00] VITALS: BP 107/52
[2017-10-16] MEDS: DABIGATRAN ETEXILATE MESYLATE 75 MG CAPSULE PO SCH (08:14)
[2017-10-16] MEDS: ASPIRIN 81 MG TAB.CHEW PO SCH (08:15)
[2017-10-16] MEDS: LINAGLIPTIN 5 MG TABLET PO SCH (08:15)
[2017-10-16] MEDS: DILTIAZEM HCL 30 MG TABLET PO SCH (08:15)
[2017-10-16] MEDS: CARVEDILOL 12.5 MG TABLET PO SCH (08:16)
[2017-10-16] MEDS: INSULIN ASPART/LISPRO 100 UNIT/ML CARTRIDGE SQ SCH ×2 (08:21→12:55)
[2017-10-16 09:00] VITALS: BP 107/52
[2017-10-16] MEDS ORDERED: LOSARTAN POTASSIUM 50 MG TABLET PO SCH (09:00)
[2017-10-16] MEDS ORDERED: DIGO125T PO (12:35)
[2017-10-16] MEDS ORDERED: DILT60TA19 PO (12:35)
[2017-10-16] MEDS ORDERED: DABI150C PO (12:35)
[2017-10-16] MEDS ORDERED: LOSA50TA3 PO (12:35)
[2017-10-16] MEDS: DIGOXIN 0.125 MG TABLET PO SCH (12:49)
[2017-10-16] MEDS: INSULIN REGULAR, HUMAN 100 UNIT/ML 3 ML VIAL SQ PRN (12:56)
--- NOTE | 2017-10-16 16:20 | NUR ---
REGIONAL HR MANAGER NOTES PATIENT AWAKE IN BED IN NO ACUTE SIGNS OF DISTRESS. A/O X 3. ABLE TO MAKE NEEDS KNOWN, DENIES CHEST PAIN OR ANY DISCOMFORTS AT THIS TIME. ON ROOM AIR, RESPIRATIONS EVEN AND UNLABORED. IV ACCESS AND ID BAND REMOVED WITH NO ASE NOTED. PATIENT REFUSING TO TAKE PICTURES TO FOREHEAD, NO CHANGES NOTED FROM PICTURE IN CHART, NURSING EDUCATION REINFORCED. PT WITH DISCHARGE ORDERS, ALL DISCHARGE INSTRUCTIONS AND PRESCRIPTION GIVEN TO PT REVIEWED WITH NOTED VERBAL UNDERSTANDING. PROVIDED PATIENT WITH DISCHARGE PACKET, ASSISTED WITH TAKING PT TO LOBBY, DISCHARGED IN STABLE CONDITION
== END 2017-10-16 16:45 | disposition home or self-care (01) | DRG 48 ==
LOC: ER 11:27 → TELE 17:59 → MED 10-14 08:53
PROVIDERS: ADMIT Nurse Practitioner Acute Care; ATTEND Nurse Practitioner Acute Care
DX: G90.8 Other disorders of autonomic nervous system (principal); E43 Unspecified severe protein-calorie malnutrition; I50.33 Acute on chronic diastolic (congestive) heart failure; I24.9 Acute ischemic heart disease, unspecified; D68.59 Other primary thrombophilia; E11.65 Type 2 diabetes mellitus with hyperglycemia; K76.0 Fatty (change of) liver, not elsewhere classified; I11.0 Hypertensive heart disease with heart failure; I48.91 Unspecified atrial fibrillation; E66.2 Morbid (severe) obesity with alveolar hypoventilation; Z91.19 Patient's noncompliance with other medical treatment and regimen; Z87.11 Personal history of peptic ulcer disease; Z86.73 Personal history of transient ischemic attack (TIA), and cerebral infarction without residual deficits; Z86.711 Personal history of pulmonary embolism; Z82.49 Family history of ischemic heart disease and other diseases of the circulatory system; Z79.82 Long term (current) use of aspirin; Z79.4 Long term (current) use of insulin; Z79.01 Long term (current) use of anticoagulants; M10.9 Gout, unspecified; Z86.718 Personal history of other venous thrombosis and embolism; Z79.899 Other long term (current) drug therapy; I25.10 Atherosclerotic heart disease of native coronary artery without angina pectoris; E87.1 Hypo-osmolality and hyponatremia; E83.42 Hypomagnesemia; E78.5 Hyperlipidemia, unspecified; K59.00 Constipation, unspecified; K21.9 Gastro-esophageal reflux disease without esophagitis; Z68.43 Body mass index [BMI] 50.0-59.9, adult
CPT/HCPCS: 36415; 70450-TC; 71045-TC; 80048-TC; 80061-TC; 80162-TC; 82962-TC; 83735-TC; 84100-TC; 84439-TC; 84484-TC; 85025-TC; 87081-TC; A4606; J1170; J1815; J2270; J3475; J3490; J7040; Z7610

== ENCOUNTER 2017-11-25 19:35 | Inpatient (IN) | payer OTHER ==
[~2017-11-25] VITALS: Ht 182.9 cm; Wt 168.7 kg
[~2017-11-25 19:35] MED LIST changes: +ASPI-1169 PO; +CARV25TA2 PO; +LINA5TAB PO; +LOSA50TA3 PO
--- NOTE | 2017-11-25 22:20 | NUR ---
RN INITIAL NOTES: RECEIVED PT DIRECT ADMIT FROM [facility]; RECEIVED VIA GURNEY AWAKE AND ALERT X4; ON ROOM AIR NOT IN APPARENT DISTRESS. ASSISTED TO BED. RECEIVED WITH ONGOING CARDIZEM DRIP THROUGH THE RFA G20 RUNNING AT A RATE OF 10MG/HR. VS NOTED. WITH COMPLAINTS OF CHEST PAIN RATED 8/10 CHARACTERIZED "HEAVY" BUT IS NON RADIATING. AFIB ON THE MONITOR, HR ERRATIC GOES UPTO 120'S BUT NON SUSTAINING. SKIN CHECK DONE WITH YVETTE BREEN RN. NOTED WITH BLANCHABLE REDNESS ON BOTH BUTTOCKS AND HEALS BUT LIGHT PINK AND SKIN IS INTACT. NOTED WITH DRY HEELS WITH BLANCHABLE REDNESS WELL. TO RENDER SKIN PROTECTIVE MEASURES. VERIFIED WITH PATIENT CURRENT MEDS HE IS TAKING, UPDATED MED RECON. SAFETY MEASURES ENSURED. CALL LIGHT IN REACH. CONTINUOUSLY MONITORED.
--- NOTE | 2017-11-25 23:00 | NUR ---
RN NOTES: ROUNDS WITH DR MORGAN. PER MD TO CONTINUE DRIP, GIVE ASPIRIN, MORPHINE AND NITROGLYCERIN SL FOR CHEST PAIN. AWAITING ADMITTING ORDERS. TO NOTE AND TO CARRY OUT. CONTINUOUSLY MONITORED PATIENT.
--- NOTE | 2017-11-25 23:00 | NUR ---
RN NOTES: NOTED HEART RHYTHM CONVERTED TO SINUS RHYTHM HR IN THE 80'S.
[2017-11-25] MEDS ORDERED: INSU100V7 SQ (23:02)
[2017-11-25] MEDS ORDERED: DIGO125T PO (23:26)
[2017-11-25] MEDS ORDERED: ALLO300T2 PO (23:26)
[2017-11-25] MEDS ORDERED: OMEP20CA10 PO (23:26)
[2017-11-25] MEDS ORDERED: ONDA4TAB8 SL (23:26)
[2017-11-25] MEDS ORDERED: DILT30TA14 PO (23:26)
[2017-11-25] MEDS ORDERED: MECL-102 PO (23:26)
[2017-11-25] MEDS ORDERED: DABI150C PO (23:26)
[2017-11-25] MEDS ORDERED: INSU100C10 SQ (23:26)
[2017-11-25] MEDS ORDERED: HYDR-552 PO (23:26)
[2017-11-25] MEDS ORDERED: METOPROLOL TARTRATE 25 MG TABLET PO SCH (23:30)
[2017-11-25] MEDS ORDERED: ZOLPIDEM TARTRATE 5 MG TABLET PO PRN (23:30)
[2017-11-25] MEDS ORDERED: ONDANSETRON HCL/PF 4 MG/2 ML VIAL IVP PRN (23:30)
[2017-11-25] MEDS: ASPIRIN 81 MG TAB.CHEW PO SCH (23:47)
[2017-11-25] MEDS: SIMVASTATIN 20 MG TABLET PO SCH (23:48)
[2017-11-25] MEDS: NITROGLYCERIN 0.4 MG/TAB BOTTLE SL PRN (23:48)
[2017-11-26] VITALS (7 sets, daily range): BP systolic 98–118; BP diastolic 55–93
[2017-11-26] MEDS ORDERED: DEXTROSE 50%-WATER 50 ML DISP.SYRIN IV PRN
[2017-11-26] MEDS ORDERED: INSULIN REGULAR, HUMAN 100 UNIT/ML 3 ML VIAL SQ PRN
[2017-11-26] MEDS: BLOOD SUGAR DIAGNOSTIC 1 EACH STRIP IN SCH ×5 (00:01→21:14)
[2017-11-26] MEDS ORDERED: MORPHINE SULFATE INJ 4 MG/ML DISP.SYRIN ONE ×2 (00:16→03:38)
[2017-11-26] MEDS: MORPHINE SULFATE INJ 2 MG/ML DISP.SYRIN IV PRN ×2 (00:17→03:44)
[2017-11-26] MEDS ORDERED: DILTIAZEM HCL IV 125 MG in IV NS 0.9% 100 ML IV PRN (01:00)
[2017-11-26] MEDS ORDERED: SITA100T PO (01:03)
[2017-11-26] MEDS ORDERED: MECL-102 PO (01:03)
[2017-11-26 01:48] LABS: BASOPHILS % (AUTO) 0.5 % (0.0-2.0); EOSINOPHILS # (AUTO) 0.1 /CMM (0.0-0.7); EOSINOPHILS % (AUTO) 1.5 % (0.0-6.0); HEMATOCRIT 41 % (39-51); LYMPHOCYTES # (AUTO) 2.9 /CMM (0.8-4.8); LYMPHOCYTES % (AUTO) 35.7 % (20.0-44.0); MEAN CORPUSCULAR HEMOGLOBIN 30 PG (26.0-33.0); MEAN CORPUSCULAR HGB CONC 34 g/dl (31.0-36.0); MEAN CORPUSCULAR VOLUME 86 fL (80-96); MONOCYTES # (AUTO) 0.6 /CMM (0.1-1.30); NEUTROPHILS # (AUTO) 4.4 /CMM (1.8-8.9); NEUTROPHILS % (AUTO) 55.3 % (43.0-81.0); PLATELET COUNT (AUTO) 225 /CMM (150-450); RDW COEFFICIENT OF VARIATION 13.9 (11.5-15.0); RED BLOOD CELL COUNT(AUTO) 4.73 MIL/uL (4.5-6.0)
--- NOTE | 2017-11-26 02:00 | NUR ---
RN NOTES: CONFIRMED WITH MD HERNANDEZ CARDIZEM DRIP; ORDER PLACED AND TO CARRY OUT. TO KEEP RATE. CARDIZEM NOT SUPPLIED IN BOTH [facility]; OBTAINED 3 25MG/5ML VIALS FROM ICU AND 1 50MG/10ML VIAL FROM ER. TO GIVE CARDIZEM ORDERED.
[2017-11-26] MEDS ORDERED: DILTIAZEM HCL 25 MG IV ONE ×3 (02:04→02:07)
[2017-11-26 02:05] LABS: MAGNESIUM 1.8 mg/dL (1.8-2.4); PHOSPHORUS 3.1 mg/dL (2.5-4.9)
[2017-11-26 02:15] LABS: CALCIUM, SERUM 8.4 mg/dL (8.5-10.1); CREATININE 1.1 mg/dL (0.6-1.3); POTASSIUM 3.6 mmol/L (3.5-5.1)
[2017-11-26] MEDS ORDERED: DILTIAZEM HCL 50 MG IV ONE (02:16)
--- NOTE | 2017-11-26 03:30 | NUR ---
RN NOTES: RECURRENCE OF CHEST PAIN NOTED; RATED 8/10; PATIENT DOES NOT SEEM TO BE IN APPARENT DISTRESS. HR REMAINED STABLE AND IS SINUS RHYTHM. PRN MORPHINE ORDERED AND NTG SL ORDERED; TO MONITOR RESPONSE TO PAIN MEDS.
[2017-11-26] MEDS: NITROGLYCERIN 0.4 MG/TAB BOTTLE SL PRN ×2 (03:44→04:13)
--- NOTE | 2017-11-26 06:58 | NUR ---
RN CLOSING NOTES: PATIENT REMAINED IN BED NOT IN APPARENT DISTRESS. NO COMPLAINTS OF PAIN AT THIS TIME. CARDIZEM ONGOING ORDERED. SAFETY MEASURES ENSURED. CONTINUOUSLY MONITORED. TO ENDORSE TO AM SHIFT RN.
--- NOTE | 2017-11-26 07:52 | NUR ---
[facility] RN NOTES PATIENT AWAKE ALERT ORIENTED X3 IN BED. ON 2 LITERS O2. SAT 95%. PATIENT ON TELEMONITOR HR 60. PT HAS CARDIZEM DRIP ON RFA HEPLOCK. NO S/S INFECTION OF HEPLOCK. CALL LIGHT WITHIN REACH. BED LOWEST LOCKED POSITION. PLAN OF CARE WILL BE DISCUSSED WITH PT.
[2017-11-26] MEDS: ASPIRIN 81 MG TAB.CHEW PO SCH (08:18)
[2017-11-26 08:20] LABS: INR 0.99 (0.87-1.13)
[2017-11-26] MEDS: *INSULIN REGULAR(HUMULIN R)HUM 100 UNIT/ML VIAL SQ PRN ×3 (08:20→21:18)
[2017-11-26] MEDS ORDERED: MORPHINE SULFATE INJ 4 MG/ML DISP.SYRIN IV PRN (08:30)
--- NOTE | 2017-11-26 09:00 | NUR ---
WAREHOUSE HANDLER NOTE DR ARNDT ORDERED STOP CARDIZEM AND AWARE THAT TO BP 98/59. LOPRESSOR WAS HOLD EARLIER WILL ENCOURAGE TO AMBULATE. WILL CONTINUE TO MONITOR. MRSA SWAB HAS BEEN COMPLETED.
[2017-11-26] MEDS: DABIGATRAN ETEXILATE MESYLATE 150 MG CAPSULE PO SCH ×2 (10:00→16:55)
[2017-11-26] MEDS ORDERED: DABIGATRAN ETEXILATE MESYLATE 150 MG CAPSULE PO ONE (10:00)
[2017-11-26] MEDS: INSULIN LISPRO/ASPART 100 UNIT/ML CARTRIDGE SQ SCH ×2 (12:28→18:00)
--- NOTE | 2017-11-26 13:22 | NUR ---
TRANSPORTATION ESCORT NOTES PT ABLE TO SELF TRANSFER TO CHAIR WITH NEGATIVE SOB. Addendum: 11/26/17 at 1328 by SAMANTHA WHALEN RN TELLO SYLVESTER
--- NOTE | 2017-11-26 15:58 | NUR ---
stated he lives at home with his father. He is ambulatory and independent with adl's. Has no DME or homehealth reported. Current plan is to return home once discharge. Addendum: 11/26/17 at 1558 by KAYE DAVILA RN Amended: Links added.
[2017-11-26] MEDS ORDERED: HYDROCODONE/APAP 10/325MG 1 EA TABLET PO PRN (16:30)
[2017-11-26] MEDS ORDERED: HYDROCODONE/APAP 5/325MG 1 EACH TABLET PO PRN (16:30)
[2017-11-26] MEDS: METOPROLOL TARTRATE 25 MG TABLET PO SCH (16:56)
--- NOTE | 2017-11-26 16:58 | NUR ---
PIPE FITTER APPRENTICE NOTES PT COMPLAINS LEG PAIN10.NORCO GIVEN TO PATIENT. PATIENT SAT96%. BP 110/70
--- NOTE | 2017-11-26 18:25 | NUR ---
EMPLOYEE COUNSELOR NOTE ALL NEEDS ATTENDED NOT IN ACUTE DISTRESS THONG LIGHT WITHIN REACH
--- NOTE | 2017-11-26 19:30 | NUR ---
IV TECHNICIAN NOTE RECEIVED PATIENT AWAKE AND ALERT IN BED. ABLE TO MAKE NEEDS KNOWN. IV SITE INTACT WITH NO REDNESS OR INFILTRATION NOTED. PATIENT STATES HE IS HAVING 8/10 GENERALIZED PAIN. RELAXATION TECHNIQUES PROVIDED. WILL ADMINISTER PAIN MEDICATION WHEN DUE. BED LOCKED AND IN LOWEST POSITION. SIDE RAILS UP, CALL LIGHT WITHIN REACH. WILL CONTINUE TO MONITOR.
[2017-11-26] MEDS: SIMVASTATIN 20 MG TABLET PO SCH (21:13)
[2017-11-26] MEDS ORDERED: INSULIN GLARGINE, 100 UNIT/ML CARTRIDGE SQ SCH (22:00)
--- NOTE | 2017-11-26 22:00 | NUR ---
COMPRESSOR MECHANIC BUS NOTE BLOOD SUGAR 142. 2 UNITS OF REGULAR INSULIN. LANTUS ADMINISTERED ORDERED.
[2017-11-27] VITALS: BP 110/70
[2017-11-27 04:00] VITALS: BP 115/60
--- NOTE | 2017-11-27 06:26 | NUR ---
CLIENT TECHNICAL PROFESSIONAL NOTE PATIENT STABLE. ALL NEEDS MET AND ATTENDED TO. BLOOD SUGAR 110. NO COVERAGE NEEDED. WILL ENDORSE TO DAY SHIFT FOR DAYANARA.
[2017-11-27] MEDS: BLOOD SUGAR DIAGNOSTIC 1 EACH STRIP IN SCH ×2 (06:28→12:01)
[2017-11-27] MEDS ORDERED: PANTOPRAZOLE 40 MG TABLET.DR PO SCH (07:30)
--- NOTE | 2017-11-27 07:30 | NUR ---
FAST FOOD ASSISTANT RESTAURANT MANAGER NOTE: RECEIVED PATIENT IN BED, ASLEEP AND AROUSABLE WITH TACTILE STIMULI. RESPIRATION IS EVEN AND UNLABORED. ON O2 2L/MIN VIA NC SATURATING 98%. NO FACIAL GRIMACING NOTED. ON CHASER TAR, SR HR= 61. (R) FA IV PERIPHERAL LINE NOTED PATENT AND INTACT. HOB ELEVATED. BED ALARM AND LOCKED AT ALL TIMES. CALL LIGHT WITHIN REACH.
--- NOTE | 2017-11-27 07:50 | NUR ---
AGRICULTURAL PRODUCE WASHER NOTE: REPORT WAS GIVEN TO MS ROBERTO CARLOS MCNAIR FOR CONTINUITY OF CARE.
[2017-11-27 08:00] VITALS: BP 131/67
[2017-11-27] MEDS: DABIGATRAN ETEXILATE MESYLATE 150 MG CAPSULE PO SCH (08:37)
[2017-11-27] MEDS: INSULIN LISPRO/ASPART 100 UNIT/ML CARTRIDGE SQ SCH ×2 (08:42→13:11)
[2017-11-27] MEDS: METOPROLOL TARTRATE 25 MG TABLET PO SCH (08:43)
[2017-11-27] MEDS ORDERED: ALLOPURINOL 100 MG TABLET PO SCH (09:00)
[2017-11-27] MEDS ORDERED: LINAGLIPTIN 5 MG TABLET PO SCH (09:00)
[2017-11-27 12:00] VITALS: BP 124/61
--- NOTE | 2017-11-27 15:40 | NUR ---
RN NOTES PATIENT DISCHARGED IN STABLE CONDITION. NO ACUTE DISTRESS NOTED. BREATHING UNLABORED. DENIED ANY PAIN. IV ACCESS REMOVED, NO BLEEDING OR REDNESS NOTED. DISCHARGE INSTRUCTIONS GIVEN TO THE PATIENT, VERBALIZED UNDERSTANDING. ALL BELONGINGS ACCOUNTED FOR. WHEELED TO THE LOBBY, ASSISTED TO A PRIVATE CAR.
== END 2017-11-27 15:33 | disposition home or self-care (01) | DRG 201 ==
LOC: TELE-TD 22:15 → TELE1 11-26 09:35 → MEDSG1 11-27 09:55
PROVIDERS: ADMIT Internal Medicine; ATTEND Internal Medicine
DX: I48.91 Unspecified atrial fibrillation (principal); E43 Unspecified severe protein-calorie malnutrition; I11.0 Hypertensive heart disease with heart failure; I50.30 Unspecified diastolic (congestive) heart failure; E66.2 Morbid (severe) obesity with alveolar hypoventilation; I25.10 Atherosclerotic heart disease of native coronary artery without angina pectoris; I25.2 Old myocardial infarction; E78.5 Hyperlipidemia, unspecified; Z86.711 Personal history of pulmonary embolism; K21.9 Gastro-esophageal reflux disease without esophagitis; Z87.11 Personal history of peptic ulcer disease; G47.33 Obstructive sleep apnea (adult) (pediatric); Z91.19 Patient's noncompliance with other medical treatment and regimen; E11.65 Type 2 diabetes mellitus with hyperglycemia; Z68.43 Body mass index [BMI] 50.0-59.9, adult
CPT/HCPCS: 36415; 80048-TC; 80061-TC; 82962-TC; 83735-TC; 84100-TC; 84484-TC; 85025-TC; 85610-TC; 87081-TC; 93307-TC; 93970-TC; J1815; J2270; J3490; J7030; Z7610

== ENCOUNTER 2017-12-31 19:14 | Emergency (ER) | payer OTHER ==
[~2017-12-31] VITALS: Ht 182.9 cm; Wt 170.6 kg
[~2017-12-31 19:14] MED LIST changes: +ALLO300T2 PO; -CARV25TA2 PO; -DIGO125T PO; -DILT60TA19 PO; +HYDR-552 PO; +INSU100C10 SQ; -INSU100I19 SQ; -INSU100I4 SQ; +INSU100V7 SQ; -LINA5TAB PO; -LOSA50TA3 PO; +MECL-102 PO; +OMEP20CA10 PO; +ONDA4TAB8 SL; +SITA100T PO
[2017-12-31 19:18] VITALS: BP 144/75
== END 2017-12-31 20:06 | disposition home or self-care (01) ==
LOC: ER 19:15
DX: L91.0 Hypertrophic scar (principal); I11.0 Hypertensive heart disease with heart failure; I50.9 Heart failure, unspecified; I48.91 Unspecified atrial fibrillation; E11.9 Type 2 diabetes mellitus without complications; M10.9 Gout, unspecified; E66.01 Morbid (severe) obesity due to excess calories; Z86.73 Personal history of transient ischemic attack (TIA), and cerebral infarction without residual deficits; Z86.711 Personal history of pulmonary embolism; Z98.890 Other specified postprocedural states; Z88.8 Allergy status to other drugs, medicaments and biological substances; Z79.4 Long term (current) use of insulin; Z79.82 Long term (current) use of aspirin
CPT/HCPCS: 99284; A4606; Z7610

== ENCOUNTER 2018-07-23 07:17 | Emergency (ER) | payer OTHER ==
[~2018-07-23] VITALS: Ht 182.9 cm; Wt 170.6 kg
[~2018-07-23 07:17] MED LIST changes: -ALLO300T2 PO; +AMIO200T4 PO; -ASPI-1169 PO; +DIGO125T PO; +DILT30TA14 PO; +FURO20TA4 PO; +HYDR-4384 PO; -HYDR-552 PO; -MECL-102 PO; -METO25TA6 PO; -OMEP20CA10 PO; -ONDA4TAB8 SL
--- NOTE | 2018-07-23 07:20 | NUR ---
PT BIB SELF C/O BLE PAIN SINCE LAST NIGHT, ALSO C/O GENERALIZED WEAKNESS, THIRST, N/V. PT IS AAOX4, NOT IN RESPIRATORY DISTRESS, V/S STABLE, KEPT RESTED AND COMFORTABLE.
--- NOTE | 2018-07-23 07:25 | NUR ---
DR. PENA AT BEDSIDE FOR EVAL.
--- NOTE | 2018-07-23 08:01 | NUR ---
LABS DRAWNED AND SENT TO LAB.
[2018-07-23] MEDS: IV NS 0.9% 1,000 ML BAG IV ONE (08:05)
--- NOTE | 2018-07-23 08:05 | NUR ---
ANNEALING OVEN OPERATOR AT BEDSIDE.
[2018-07-23 08:07] LABS: BASOPHILS # (AUTO) 0.1 /CMM (0.0-0.2); BASOPHILS % (AUTO) 0.7 % (0.0-2.0); EOSINOPHILS % (AUTO) 2.6 % (0.0-6.0); HEMATOCRIT 47 % (39-51); LYMPHOCYTES # (AUTO) 2.3 /CMM (0.8-4.8); LYMPHOCYTES % (AUTO) 28.8 % (20.0-44.0); MEAN CORPUSCULAR HGB CONC 34 g/dl (31.0-36.0); MEAN CORPUSCULAR VOLUME 87 fL (80-96); MONOCYTES # (AUTO) 0.5 /CMM (0.1-1.30); MONOCYTES % (AUTO) 6.2 % (2.0-12.0); NEUTROPHILS # (AUTO) 4.9 /CMM (1.8-8.9); NEUTROPHILS % (AUTO) 61.7 % (43.0-81.0); PLATELET COUNT (AUTO) 218 /CMM (150-450); RED BLOOD CELL COUNT(AUTO) 5.34 MIL/uL (4.5-6.0); WHITE BLOOD COUNT (AUTO) 7.9 K/uL (4.3-11.0)
--- NOTE | 2018-07-23 08:17 | NUR ---
URINE COLLECTED AND SET TO LAB.
[2018-07-23 08:24] LABS: CALCIUM, SERUM 8.7 mg/dL (8.5-10.1); CREATININE 0.9 mg/dL (0.6-1.3); POTASSIUM 3.7 mmol/L (3.5-5.1)
[2018-07-23 08:29] LABS: ALBUMIN 3.5 g/dL (3.4-5.0); BILIRUBIN,DIRECT 0.2 mg/dL (0.0-0.2); BILIRUBIN,TOTAL 0.6 mg/dL (0.2-1.0); TOTAL PROTEIN, SERUM 7.4 g/dL (6.4-8.2)
[2018-07-23 08:54] LABS: APPEARANCE,URINE CLEAR (CLEAR); BILIRUBIN,URINE NEGATIVE (NEGATIVE); BLOOD, URINE NEGATIVE Ery/uL (NEGATIVE); COLOR,URINE YELLOW (YELLOW); KETONES,URINE NEGATIVE (NEGATIVE); LEUKOCYTE ESTERASE ,URINE NEGATIVE (NEGATIVE); NITRITE, URINE NEGATIVE (NEGATIVE); PH,URINE 5.5 (5.0-8.0); PROTEIN,URINE NEGATIVE (NEGATIVE); UGLUCOSE 1+ mg/dL (NEGATIVE); UROBILINOGEN,URINE 0.2 EU/dL (0.2)
[2018-07-23 08:59] LABS: BACTERIA,URINE Rare /HPF (None Seen); RBC,URINE NONE SEEN /HPF (0-2); SQUAMOUS EPITHELIAL CELL,UR Few /HPF (None Seen); WBC,URINE 0-2 /HPF (0-3)
[2018-07-23 09:36] VITALS: BP 129/66
--- NOTE | 2018-07-23 09:36 | NUR ---
IV removed. Catheter intact and site benign. Pressure and 4x4 applied to site. No bleeding noted. Patient discharged to home in stable condition. Written and verbal after care instructions given. Patient verbalizes understanding of instruction.
== END 2018-07-23 09:37 | disposition home or self-care (01) ==
LOC: ER 07:18
DX: E11.65 Type 2 diabetes mellitus with hyperglycemia (principal); E66.01 Morbid (severe) obesity due to excess calories; I48.91 Unspecified atrial fibrillation; I11.0 Hypertensive heart disease with heart failure; I50.9 Heart failure, unspecified; M10.9 Gout, unspecified; Z98.890 Other specified postprocedural states; Z68.43 Body mass index [BMI] 50.0-59.9, adult; Z86.73 Personal history of transient ischemic attack (TIA), and cerebral infarction without residual deficits; Z86.711 Personal history of pulmonary embolism; Z88.8 Allergy status to other drugs, medicaments and biological substances; Z79.899 Other long term (current) drug therapy; Z79.4 Long term (current) use of insulin; Z79.84 Long term (current) use of oral hypoglycemic drugs
CPT/HCPCS: 36415; 71045-TC; 80048-TC; 80076-TC; 81000-TC; 82010-TC; 82962-TC; 85025-TC; A4606; J7030; Z7610

== ENCOUNTER 2018-10-12 21:12 | Inpatient (IN) | payer OTHER ==
[~2018-10-12] VITALS: Ht 167.6 cm; Wt 168.3 kg
--- NOTE | 2018-10-12 21:16 | NUR ---
PT BIBRA. C.O "HAVING PALPITATIONS AT HOME" -SOB -N.V AOX4. -CHEST PAIN. EKG DONE. MD AT BEDSIDE.
[2018-10-12] MEDS ORDERED: IV NS 0.9% 1,000 ML BAG IV ONE (21:30)
[2018-10-12] MEDS ORDERED: DILTIAZEM HCL 50 MG IV IV ONE (21:30)
[2018-10-12] MEDS ORDERED: DILTIAZEM HCL 30 MG TABLET PO ONE (21:30)
[2018-10-12] MEDS ORDERED: DILTIAZEM HCL 25 MG IV ONE (21:49)
[2018-10-12] MEDS ORDERED: DILTIAZEM HCL 30 MG TABLET ONE (21:49)
[2018-10-12 21:50] LABS: BASOPHILS # (AUTO) 0.1 /CMM (0.0-0.2); BASOPHILS % (AUTO) 0.6 % (0.0-2.0); EOSINOPHILS % (AUTO) 0.9 % (0.0-6.0); HEMATOCRIT 49 % (39-51); HEMOGLOBIN 16.8 g/dL (13.5-17.5); LYMPHOCYTES # (AUTO) 2.5 /CMM (0.8-4.8); LYMPHOCYTES % (AUTO) 22.6 % (20.0-44.0); MEAN CORPUSCULAR HGB CONC 34 g/dl (31.0-36.0); MEAN CORPUSCULAR VOLUME 87 fL (80-96); MONOCYTES # (AUTO) 0.5 /CMM (0.1-1.30); NEUTROPHILS # (AUTO) 7.7 /CMM (1.8-8.9); NEUTROPHILS % (AUTO) 70.9 % (43.0-81.0); PLATELET COUNT (AUTO) 256 /CMM (150-450); RED BLOOD CELL COUNT(AUTO) 5.64 MIL/uL (4.5-6.0); WHITE BLOOD COUNT (AUTO) 10.9 K/uL (4.3-11.0)
[2018-10-12 22:00] LABS: CALCIUM, SERUM 8.8 mg/dL (8.5-10.1); CARBON DIOXIDE 31 mmol/L (21-32); CHLORIDE 100 mmol/L (98-107); CREATININE 1.3 mg/dL (0.6-1.3); GLUCOSE 330 mg/dL (74-106); POTASSIUM 3.6 mmol/L (3.5-5.1); SODIUM SERUM 136 mmol/L (136-145); UREA NITROGEN, BLOOD 14 mg/dL (7-18)
--- NOTE | 2018-10-12 22:00 | NUR ---
PT RESTING IN BED. VSS. AOX4.
[2018-10-12 22:09] LABS: DIGOXIN < 0.20 ng/mL (0.90-2.00)
[2018-10-12 22:13] LABS: ALANINE AMINOTRANSFERASE 41 U/L (12-78); ALBUMIN 3.4 g/dL (3.4-5.0); ALKALINE PHOSPHATASE 142 U/L (46-116); ASPARTATE AMINOTRANSFERASE 23 U/L (15-37); B-TYPE NATRIURETIC PEPTIDE 86 PG/ML (0-125); BILIRUBIN,DIRECT 0.1 mg/dL (0.0-0.2); BILIRUBIN,TOTAL 0.3 mg/dL (0.2-1.0); TOTAL PROTEIN, SERUM 7.2 g/dL (6.4-8.2)
[2018-10-12 22:29] LABS: THYROID STIMULATING HORMONE 2.348 uIU/mL (0.358-3.74)
[2018-10-12] MEDS ORDERED: INSULIN REGULAR, HUMAN 100 UNIT/ML 10 ML VIAL IV ONE (22:30)
[2018-10-12 22:36] LABS: MAGNESIUM 1.8 mg/dL (1.8-2.4)
--- NOTE | 2018-10-12 23:16 | NUR ---
unable to start new IV after multiple attempts. notified Dr Andre. order received for midline. notified Yvon nursing supervisor inspecting.
[2018-10-12] MEDS ORDERED: INSULIN REGULAR, HUMAN 100 UNIT/ML 10 ML VIAL ONE (23:52)
[2018-10-13] VITALS (9 sets, daily range): BP systolic 100–135; BP diastolic 51–70
--- NOTE | 2018-10-13 00:29 | NUR ---
REPORT GIVEN TO MARYURI AZEVEDO.
--- NOTE | 2018-10-13 01:29 | NUR ---
JEWEL BEARING TURNER NOTES RECEIVED PT FROM ER NURSE DONNIE. PT ABLE TO WALK TO HIS BED. ON ROOM AIR SATURATING WELL, NO RESPIRATORY DISTRESS NOTED. PT A/O X4. ON TELE MONITOR AFIB 98. IV ACCESS LISA MIDLINE PATENT AND INTACT. HEAD OF BED ELEVATED. SIDE RAILS UP. CALL LIGHT WITHIN REACH. BED ALARM ON. WILL CONT TO MONITOR PT CLOSELY.
[2018-10-13] MEDS ORDERED: HYDROCODONE/APAP 5/325MG 1 EACH TABLET PO PRN (01:30)
[2018-10-13] MEDS ORDERED: DEXTROSE 50%-WATER 50 ML DISP.SYRIN IV PRN (01:30)
[2018-10-13] MEDS ORDERED: MAGNESIUM HYDROXIDE 30 ML UDC PO PRN (01:30)
[2018-10-13] MEDS ORDERED: ACETAMINOPHEN 325 MG TABLET PO PRN (01:30)
[2018-10-13] MEDS ORDERED: Z GUARD REMEDY 2 OZ OINT TP PRN (01:30)
[2018-10-13] MEDS ORDERED: ZOLPIDEM TARTRATE 5 MG TABLET PO PRN (01:30)
[2018-10-13] MEDS ORDERED: ONDANSETRON HCL/PF 4 MG/2 ML VIAL IVP PRN (01:30)
--- NOTE | 2018-10-13 01:31 | NUR ---
CARDIAC CARE UNIT NURSE NOTES PER PT, HE CANNOT REMEMBER HIS HOME MEDS. PER PT, SOMEONE WILL BRING ALL HIS MEDICATIONS IN AM.
[2018-10-13] MEDS: INSULIN GLARGINE, 100 UNIT/ML CARTRIDGE SQ SCH ×2 (02:30→21:38)
[2018-10-13] MEDS: MORPHINE SULFATE INJ 2 MG/ML DISP.SYRIN IV PRN ×5 (02:32→21:33)
[2018-10-13 06:44] LABS: CALCIUM, SERUM 8.2 mg/dL (8.5-10.1); CARBON DIOXIDE 28 mmol/L (21-32); CHLORIDE 101 mmol/L (98-107); GLUCOSE 309 mg/dL (74-106); POTASSIUM 3.4 mmol/L (3.5-5.1); SODIUM SERUM 138 mmol/L (136-145); UREA NITROGEN, BLOOD 13 mg/dL (7-18)
--- NOTE | 2018-10-13 07:20 | NUR ---
RN OPENING NOTE PT WAS RECIEVED IN BED AT LOWEST AND LOCKED POSITION WITH SIDE RAILS UP X2, A/O XX4, BREATHING EVEN AND UNLABORED ON RA, NO S/S OF DISTRESS NOTED AT THIS TIME, NOTED TO BE ON TELE AND CURRENTLY SR, IV IS PATENT AND INTACT, SAFETY PRECAUTIONS IN PLACE, CALL LIGHT WITHIN REACH, WILL MONITOR ACCORDINGLY.
[2018-10-13] MEDS: PANTOPRAZOLE 40 MG TABLET.DR PO SCH (08:05)
[2018-10-13] MEDS: BLOOD SUGAR DIAGNOSTIC 1 EACH STRIP IN SCH ×4 (08:05→21:28)
[2018-10-13] MEDS: INSULIN REGULAR, HUMAN 100 UNIT/ML 3 ML VIAL SQ PRN ×4 (08:10→21:39)
--- NOTE | 2018-10-13 08:12 | NUR ---
WOUND CARE CONSULT: PT PRESENTS AMBULATORY AND CONTINENT. SKIN ASSESSMENT LIMITED TO FEET. PT DENIES NEED FOR FULL SKIN ASSESSMENT. LEFT 4TH TOE CRUSTED WOUND NOTED TO BE PRESENT ON ADMISSION. SOME TENDERNESS NOTED, NO DRAINAGE. RECOMMEND DPM CONSULT. WILL SEE PRN. Addendum: 10/13/18 at 0814 by MICHAEL RODRIGUEZ WNDNU Amended: Links added.
[2018-10-13] MEDS: DILTIAZEM HCL 30 MG TABLET PO SCH ×2 (08:13→21:27)
[2018-10-13] MEDS: DIGOXIN 0.125 MG TABLET PO SCH (08:13)
[2018-10-13] MEDS: FUROSEMIDE 20 MG TABLET PO SCH (08:15)
[2018-10-13] MEDS: AMIODARONE HCL 200 MG TABLET PO SCH (08:21)
[2018-10-13] MEDS ORDERED: SITAGLIPTIN PHOSPHATE 50 MG TABLET PO SCH (09:00)
[2018-10-13] MEDS: LINAGLIPTIN 5 MG TABLET PO SCH (09:22)
[2018-10-13] MEDS: DABIGATRAN ETEXILATE MESYLATE 150 MG CAPSULE PO SCH ×2 (09:23→16:02)
[2018-10-13] MEDS ORDERED: POTASSIUM CHLORIDE 20 MEQ TAB.PRT.SR PO SCH (11:30)
[2018-10-13 15:12] LABS: BASOPHILS # (AUTO) 0.1 /CMM (0.0-0.2); BASOPHILS % (AUTO) 1.1 % (0.0-2.0); EOSINOPHILS % (AUTO) 1.2 % (0.0-6.0); HEMATOCRIT 45 % (39-51); HEMOGLOBIN 15.3 g/dL (13.5-17.5); LYMPHOCYTES # (AUTO) 3.1 /CMM (0.8-4.8); LYMPHOCYTES % (AUTO) 31.2 % (20.0-44.0); MEAN CORPUSCULAR HGB CONC 34 g/dl (31.0-36.0); MEAN CORPUSCULAR VOLUME 89 fL (80-96); MONOCYTES # (AUTO) 0.6 /CMM (0.1-1.30); MONOCYTES % (AUTO) 5.9 % (2.0-12.0); NEUTROPHILS # (AUTO) 5.9 /CMM (1.8-8.9); NEUTROPHILS % (AUTO) 60.6 % (43.0-81.0); PLATELET COUNT (AUTO) 222 /CMM (150-450); RED BLOOD CELL COUNT(AUTO) 5.05 MIL/uL (4.5-6.0); WHITE BLOOD COUNT (AUTO) 9.8 K/uL (4.3-11.0)
--- NOTE | 2018-10-13 18:06 | NUR ---
RN CLOSING NOTE PT RESTING IN BED AT LOWEST AND LOCKED POSITION WITH SIDE RAILS UP X2, A/O X4, BREATHING EVEN AND UNLABORED, NO S/S OF DISTRESS AT THIS TIME, IV IS PATENT AND INTACT, SAFETY PRECAUTIONS IN PLACE, CALL LIGHT WITHIN REACH, WILL ENDORSE TO HEALTH CARE COACH RN FOR DAYANARA.
--- NOTE | 2018-10-13 19:05 | NUR ---
BUSH AND VINE FRUIT CROP FARMER NOTE PATIENT IS AOX3, SPEECH CLEAR, RESTING WITH HOB ELEVATED, ON TELE SR, DENIES ANY CARDIAC OR RESPIRATORY DISTRESS, ON ROOM AIR, LISA MIDLINE PATENT FLUSHING WELL, SITE IS CLEAN AND DRY, RIGHT TOE DRESSING INTACT, SAFETY MAINTAINED AT ALL TIMES, BED IN LOW LOCKED POSITION, CALL LIGHT WITHIN REACH, WILL CONTINUE TO MONITOR FOR ANY CHANGES.
[2018-10-13] MEDS ORDERED: LEVOFLOXACIN 750 MG /D5W 150ML 750 MG in PREMIX 1 EA IV SCH (20:00)
[2018-10-13] MEDS ORDERED: ATORVASTATIN 10 MG TABLET PO SCH (22:00)
--- NOTE | 2018-10-13 22:35 | NUR ---
SPECIAL PROCEDURES NURSE NOTE LISA MIDLINE REMOVED DUE TO PT REPORTING PAIN AT SITE NOTED INFILTRATION, NEW SITE PLACED #24G LEFT WRIST PATENT FLUSHING WELL. Addendum: 10/14/18 at 0649 by JOEL WEN RN LISA NOTED EDEMA AND TENDERNESS, PT COMPLAINING OF INCREASED PAIN IN AREA, MIDLINE REMOVED, IV INTACT, AREA COVERED WITH DRESSING
[2018-10-14] VITALS: BP 121/48
[2018-10-14] MEDS: MORPHINE SULFATE INJ 2 MG/ML DISP.SYRIN IV PRN ×3 (03:15→12:24)
--- NOTE | 2018-10-14 03:24 | NUR ---
CHOPPER GUN OPERATOR NOTE PT REFUSED RIGHT WRIST #22G IV, RN REMOVED IT CURRENTLY HAS ONLY LEFT WRIST #24G IV
[2018-10-14 04:00] VITALS: BP 100/64
--- NOTE | 2018-10-14 07:20 | NUR ---
MINE MANAGER OPENING NOTES RECEIVED BEDSIDE REPORT PATIENT SLEEPING ABLE TO AROUSE WITH VOICE AND TOUCH. A/0 X4, NO SIGN SOB SYMPTOMS OF RESPIRATORY DISTRESS OR ACUTE PAIN NOTED AT THIS TIME. SINUS RHYTHM ON THE TELE MONITOR. SKIN INTACT. NO NAUSEA OR VOMITING NOTED. AMBULATORY TO BATHROOM. SAFETY PRECAUTIONS IN PLACE BED IN LOW POSITION CALL LIGHT WITHIN REACH WILL CONT TO MONITOR
[2018-10-14 07:34] LABS: BASOPHILS % (AUTO) 0.7 % (0.0-2.0); EOSINOPHILS % (AUTO) 2.1 % (0.0-6.0); HEMATOCRIT 43 % (39-51); LYMPHOCYTES # (AUTO) 2.4 /CMM (0.8-4.8); LYMPHOCYTES % (AUTO) 32.9 % (20.0-44.0); MEAN CORPUSCULAR HGB CONC 35 g/dl (31.0-36.0); MEAN CORPUSCULAR VOLUME 87 fL (80-96); MONOCYTES # (AUTO) 0.4 /CMM (0.1-1.30); MONOCYTES % (AUTO) 6.1 % (2.0-12.0); NEUTROPHILS # (AUTO) 4.2 /CMM (1.8-8.9); NEUTROPHILS % (AUTO) 58.2 % (43.0-81.0); PLATELET COUNT (AUTO) 198 /CMM (150-450); RED BLOOD CELL COUNT(AUTO) 4.98 MIL/uL (4.5-6.0); WHITE BLOOD COUNT (AUTO) 7.3 K/uL (4.3-11.0)
[2018-10-14] MEDS: BLOOD SUGAR DIAGNOSTIC 1 EACH STRIP IN SCH ×2 (07:51→12:00)
[2018-10-14 08:00] VITALS: BP_SYST 107; BP_DIAS 52; BP_DIAS 57
[2018-10-14] MEDS: DILTIAZEM HCL 30 MG TABLET PO SCH (08:20)
[2018-10-14] MEDS: PANTOPRAZOLE 40 MG TABLET.DR PO SCH (08:20)
[2018-10-14 08:21] LABS: CALCIUM, SERUM 8.2 mg/dL (8.5-10.1); CREATININE 0.9 mg/dL (0.6-1.3); MAGNESIUM 1.6 mg/dL (1.8-2.4); PHOSPHORUS 3.6 mg/dL (2.5-4.9); POTASSIUM 3.6 mmol/L (3.5-5.1)
[2018-10-14] MEDS: LINAGLIPTIN 5 MG TABLET PO SCH (08:21)
[2018-10-14] MEDS: DIGOXIN 0.125 MG TABLET PO SCH (08:21)
[2018-10-14] MEDS: AMIODARONE HCL 200 MG TABLET PO SCH (08:21)
[2018-10-14] MEDS: FUROSEMIDE 20 MG TABLET PO SCH (08:21)
[2018-10-14] MEDS: INSULIN REGULAR, HUMAN 100 UNIT/ML 3 ML VIAL SQ PRN ×2 (08:23→12:26)
[2018-10-14] MEDS: DABIGATRAN ETEXILATE MESYLATE 150 MG CAPSULE PO SCH (08:27)
[2018-10-14] MEDS ORDERED: NEOMY SULF/BACITRAC ZN/POLY 15 GM TUBE TP SCH (09:00)
[2018-10-14] MEDS: Magnesium 1GM/D5W 100ML PREMIX 100 ML IV SCH ×2 (11:45→13:56)
[2018-10-14 12:00] VITALS: BP 108/67
--- NOTE | 2018-10-14 12:34 | NUR ---
RN MS NOTES PT TRANSFERRED TO MS IVPB OF MAG SLOWED RATE 50ML/HR PT C/O BURNING
--- NOTE | 2018-10-14 15:34 | NUR ---
RN NOTES LEFT MESSAGE WITH BROTHER SHIRIN TO CALL BACK . IF NO CALL BACK PATIENT WILL BE GIVEN A BUS PASS OR TAXI VOUCHER
[2018-10-14 16:00] VITALS: BP 109/61
--- NOTE | 2018-10-14 16:05 | NUR ---
RN MS DISCHARGE NOTES PATIENT REFUSED PHOTOS. ALL DISCHARGE INSTRUCTIONS EXPLAINED. BUS TOKEN GIVEN FOR TRANSPORTATION LAST VITAL SIGNS T 97.7. HR 73 RR 18 O2 96% ON ROOM AIR BP 109/61. ALL BELONGINGS GIVEN IV REMOVED AND INTACT.
[2018-10-14] MEDS ORDERED: LACTOBACILLUS RHAMNOSUS GG 1 EACH CAP.SPRINK PO SCH (17:00)
== END 2018-10-14 16:20 | disposition home or self-care (01) | DRG 201 ==
LOC: ER 21:15 → TELE1 22:46 → MEDSG1 10-14 12:11
PROVIDERS: ADMIT Nurse Practitioner Acute Care; ATTEND Family Medicine
PROC: 05H633Z Insertion of Infusion Device into Left Subclavian Vein, Percutaneous Approach (ICD-10-PCS; principal; 2018-10-13)
PROC: B547ZZA Ultrasonography of Left Subclavian Vein, Guidance (ICD-10-PCS; principal; 2018-10-13)
DX: I48.0 Paroxysmal atrial fibrillation (principal); D68.59 Other primary thrombophilia; E11.42 Type 2 diabetes mellitus with diabetic polyneuropathy; E11.65 Type 2 diabetes mellitus with hyperglycemia; E44.1 Mild protein-calorie malnutrition; E66.2 Morbid (severe) obesity with alveolar hypoventilation; J40 Bronchitis, not specified as acute or chronic; B35.1 Tinea unguium; K21.9 Gastro-esophageal reflux disease without esophagitis; Z68.43 Body mass index [BMI] 50.0-59.9, adult; E78.5 Hyperlipidemia, unspecified; Z86.711 Personal history of pulmonary embolism; I25.10 Atherosclerotic heart disease of native coronary artery without angina pectoris; R60.9 Edema, unspecified; S91.115A Laceration without foreign body of left lesser toe(s) without damage to nail, initial encounter; Z86.73 Personal history of transient ischemic attack (TIA), and cerebral infarction without residual deficits; Z87.11 Personal history of peptic ulcer disease; Z82.49 Family history of ischemic heart disease and other diseases of the circulatory system; I10 Essential (primary) hypertension
CPT/HCPCS: 36415; 36569; 71045-TC; 71046; 80048-TC; 80061-TC; 80076-TC; 80162-TC; 82962-TC; 83735-TC; 83880; 84100-TC; 84443-TC; 84484-TC; 85025-TC; 85378-TC; 85730-TC; A4216; A6402; G0378; J1815; J1956; J2270; J3475; J3490; J7030

== ENCOUNTER 2018-12-16 21:15 | Inpatient (IN) | payer OTHER ==
[~2018-12-16] VITALS: Ht 182.9 cm; Wt 166.0 kg
--- NOTE | 2018-12-16 23:30 | NUR ---
PURCHASING EXPEDITOR NOTE RECEIVED PT TRANSFER FROM [place]ING, AOX3, SPEECH CLEAR, ABLE TO MAKE NEEDS KNOWN, ON TELE AFIB, NO S/SX OF CARDIAC OR RESPIRATORY DISTRESS, ON 2L O2 NC, SKIN KEPT DRY AND INTACT, R HAND AND LEFT HAND #20G IV, BOTH PATENT FLUSHING WELL, SAFETY MAINTAINED AT ALL TIMES, BED IN LOW LOCKED POSITION, CALL LIGHT WITHIN REACH, WILL CONTINUE TO MONITOR FOR ANY CHANGES IN CONDITION.
[2018-12-16 23:37] VITALS: BP 99/64
[2018-12-17] MEDS ORDERED: ENOXAPARIN SODIUM 40 MG/0.4 ML DISP.SYRIN SQ SCH
[2018-12-17] MEDS ORDERED: MAG HYDROX/AL HYDROX/SIMETH 30 ML UDC PO PRN
[2018-12-17] MEDS ORDERED: DEXTROSE 50%-WATER 50 ML DISP.SYRIN IV PRN
[2018-12-17] MEDS ORDERED: MAGNESIUM HYDROXIDE 30 ML UDC PO PRN
[2018-12-17] MEDS ORDERED: ZOLPIDEM TARTRATE 5 MG TABLET PO PRN
[2018-12-17] MEDS ORDERED: *INSULIN REGULAR(HUMULIN R)HUM 100 UNIT/ML VIAL SQ PRN
[2018-12-17] MEDS ORDERED: ACETAMINOPHEN 325 MG TABLET PO PRN
[2018-12-17] MEDS ORDERED: ONDANSETRON HCL/PF 4 MG/2 ML VIAL IVP PRN
[2018-12-17] MEDS ORDERED: HYDROCODONE/APAP 5/325MG 1 EACH TABLET PO PRN
[2018-12-17] MEDS: IV NS 0.9% 1,000 ML IV PRN ×2 (00:19→11:38)
[2018-12-17] MEDS: MORPHINE SULFATE INJ 2 MG/ML DISP.SYRIN IV PRN ×3 (00:20→11:35)
[2018-12-17] MEDS ORDERED: ENOXAPARIN SODIUM 40 MG/0.4 ML DISP.SYRIN SQ ONE (00:30)
[2018-12-17 04:00] VITALS: BP 118/73
[2018-12-17 07:01] LABS: BASOPHILS % (AUTO) 0.6 % (0.0-2.0); HEMATOCRIT 45 % (39-51); HEMOGLOBIN 15.5 g/dL (13.5-17.5); LYMPHOCYTES # (AUTO) 2.8 /CMM (0.8-4.8); LYMPHOCYTES % (AUTO) 34.2 % (20.0-44.0); MEAN CORPUSCULAR HGB CONC 34 g/dl (31.0-36.0); MEAN CORPUSCULAR VOLUME 89 fL (80-96); MONOCYTES # (AUTO) 0.5 /CMM (0.1-1.30); MONOCYTES % (AUTO) 5.6 % (2.0-12.0); NEUTROPHILS # (AUTO) 4.7 /CMM (1.8-8.9); NEUTROPHILS % (AUTO) 57.6 % (43.0-81.0); PLATELET COUNT (AUTO) 151 /CMM (150-450); RED BLOOD CELL COUNT(AUTO) 5.05 MIL/uL (4.5-6.0); WHITE BLOOD COUNT (AUTO) 8.1 K/uL (4.3-11.0)
[2018-12-17] MEDS ORDERED: PANTOPRAZOLE 40 MG TABLET.DR PO SCH (07:30)
--- NOTE | 2018-12-17 07:33 | NUR ---
HAND STRIPPER OPENING NOTE RECEIVED PT IN BED SLEEPING. NO SOB OR SCUTE DISTRESS NOTED. ON TELE SR 70'S. ON 2L O2 NC, PATIENT CLEAN AND DRY. R HAND AND LEFT HAND #20G IV, BOTH INTACT AND PATENT. SAFETY MAINTAINED AT ALL TIMES, BED IN LOW LOCKED POSITION, CALL LIGHT WITHIN REACH, WILL CONTINUE TO MONITOR FOR ANY CHANGES IN CONDITION.
[2018-12-17] MEDS: BLOOD SUGAR DIAGNOSTIC 1 EACH STRIP VI SCH ×2 (07:49→11:54)
[2018-12-17 08:00] VITALS: BP 102/68
[2018-12-17] MEDS: INSULIN REGULAR, HUMAN 100 UNIT/ML 3 ML VIAL SQ PRN ×2 (08:04→12:00)
[2018-12-17] MEDS ORDERED: FUROSEMIDE 20 MG TABLET PO SCH (09:00)
[2018-12-17] MEDS ORDERED: DILTIAZEM HCL 30 MG TABLET PO SCH (09:00)
[2018-12-17] MEDS ORDERED: DIGOXIN 0.125 MG TABLET PO SCH (09:00)
[2018-12-17] MEDS ORDERED: AMIODARONE HCL 200 MG TABLET PO SCH (09:00)
[2018-12-17] MEDS ORDERED: DABIGATRAN ETEXILATE MESYLATE 150 MG CAPSULE PO SCH (09:26)
[2018-12-17 10:42] LABS: ALBUMIN 2.8 g/dL (3.4-5.0); BILIRUBIN,TOTAL 0.5 mg/dL (0.2-1.0); CALCIUM, SERUM 7.8 mg/dL (8.5-10.1); CREATININE 0.9 mg/dL (0.6-1.3); MAGNESIUM 1.7 mg/dL (1.8-2.4)
[2018-12-17 12:00] VITALS: BP 104/67
--- NOTE | 2018-12-17 12:06 | NUR ---
CEMENT AND CONCRETE PLANT WORKER NOTE PATIENT BLOOD SUGAR 386 REPORTED FROM LAB @ 1045. PATIENT HAD 12 UNITS HUMULIN R AT 0800. INFORMED. MADE NO INTERVENTIONS ADDITIONAL TO EXISTING ACCUCHECK DUE AT 1200. DISCHARGE ORDER PLACED. 1200 ACCUCHECK COMPLETED, BLOOS SUGAR 382. 15 UNITS HUMULIN R GIVEN PER INSULIN SLIDING SCALE AT 1202..
--- NOTE | 2018-12-17 14:12 | NUR ---
PIE BOTTOMERENGINEER AND GEOLOGIST NOTE PATIENT DISCHARGED TO HOME PER MD ORDER. IV SL IN R AND L HANDS REMOVED. NO TELE MONITOR ON PATIENT. PATIENT AMBULATORY. TAKEN TO HOSPITAL LOBBY VIA WHEELCHAIR BY RN. PATIENT CALLED [facility] FOR RIDE HOME. PATIENT A/O X 4, V/S WNL, NO SOB OR DISTRESS, AMBULATORY. ALL EDUCATION GIVEN, D/C PAPERWORK GIVEN AND SIGNED. BELONGINGS LIST SIGNED. PATIENT D/C W/O INCIDENT.
[2018-12-17] MEDS ORDERED: Medication Not On Formulary EA (Atorvastatin Calcium (Lipitor) 20 MG) PO SCH (22:00)
[2018-12-17] MEDS ORDERED: ATORVASTATIN 10 MG TABLET PO SCH (22:00)
[2018-12-17] MEDS ORDERED: INSULIN GLARGINE, 100 UNIT/ML CARTRIDGE SQ SCH (22:00)
== END 2018-12-17 14:16 | disposition home or self-care (01) | DRG 201 ==
LOC: TELE1 23:19 → MEDSG1 12-17 09:47
PROVIDERS: ADMIT Nurse Practitioner Acute Care; ATTEND Nurse Practitioner Acute Care
DX: I48.0 Paroxysmal atrial fibrillation (principal); I11.0 Hypertensive heart disease with heart failure; E11.65 Type 2 diabetes mellitus with hyperglycemia; I50.9 Heart failure, unspecified; I25.10 Atherosclerotic heart disease of native coronary artery without angina pectoris; K21.9 Gastro-esophageal reflux disease without esophagitis; E78.5 Hyperlipidemia, unspecified; Z86.711 Personal history of pulmonary embolism; E66.2 Morbid (severe) obesity with alveolar hypoventilation; Z68.42 Body mass index [BMI] 45.0-49.9, adult; I25.2 Old myocardial infarction; Z87.11 Personal history of peptic ulcer disease; Z91.14 Patient's other noncompliance with medication regimen; E87.1 Hypo-osmolality and hyponatremia
CPT/HCPCS: 36415; 71045-TC; 80053-TC; 80061-TC; 82962-TC; 83735-TC; 84100-TC; 84484-TC; 85025-TC; 87081-TC; 94799-TC; G0378; J1650; J1815; J2270; J7030

== ENCOUNTER 2018-12-26 14:53 | Emergency (ER) ==
[~2018-12-26] VITALS: Ht 175.3 cm; Wt 165.1 kg
--- NOTE | 2018-12-26 15:13 | NUR ---
DR PENA AT BEDSIDE FOR EVAL.
--- NOTE | 2018-12-26 15:25 | NUR ---
FACTORER AT BEDSIDE FOR BLOOD DRAW.
--- NOTE | 2018-12-26 15:27 | NUR ---
RADIOLOGY AT BEDSIDE FOR CHEST XRAY.
[2018-12-26] MEDS ORDERED: NITROGLYCERIN PACKET 1 GM PACKET ONE (15:29)
[2018-12-26] MEDS ORDERED: NITROGLYCERIN PACKET 1 GM PACKET TD ONE (15:30)
[2018-12-26 15:33] LABS: BASOPHILS # (AUTO) 0.1 /CMM (0.0-0.2); BASOPHILS % (AUTO) 0.7 % (0.0-2.0); HEMATOCRIT 48 % (39-51); HEMOGLOBIN 16.9 g/dL (13.5-17.5); LYMPHOCYTES # (AUTO) 2.3 /CMM (0.8-4.8); LYMPHOCYTES % (AUTO) 26.3 % (20.0-44.0); MEAN CORPUSCULAR HGB CONC 35 g/dl (31.0-36.0); MEAN CORPUSCULAR VOLUME 89 fL (80-96); MONOCYTES # (AUTO) 0.6 /CMM (0.1-1.30); MONOCYTES % (AUTO) 6.3 % (2.0-12.0); NEUTROPHILS # (AUTO) 5.8 /CMM (1.8-8.9); NEUTROPHILS % (AUTO) 65.7 % (43.0-81.0); PLATELET COUNT (AUTO) 205 /CMM (150-450); RED BLOOD CELL COUNT(AUTO) 5.41 MIL/uL (4.5-6.0); WHITE BLOOD COUNT (AUTO) 8.8 K/uL (4.3-11.0)
[2018-12-26 15:58] LABS: B-TYPE NATRIURETIC PEPTIDE 16 PG/ML (0-125); CARBON DIOXIDE 25 mmol/L (21-32); CHLORIDE 98 mmol/L (98-107); CREATININE 0.8 mg/dL (0.6-1.3); POTASSIUM 3.9 mmol/L (3.5-5.1); SODIUM SERUM 135 mmol/L (136-145); UREA NITROGEN, BLOOD 12 mg/dL (7-18)
[2018-12-26 15:59] LABS: GLUCOSE 368 mg/dL (74-106)
[2018-12-26] MEDS ORDERED: INSULIN REGULAR, HUMAN 100 UNIT/ML 10 ML VIAL ONE (16:11)
[2018-12-26] MEDS ORDERED: INSULIN REGULAR, HUMAN 100 UNIT/ML 10 ML VIAL IV ONE (16:30)
--- NOTE | 2018-12-26 16:34 | NUR ---
PT STATES FEELING MUCH BETTER. DENIES ANY OTHER COMPLAINTS AT THIS TIME AND WANT TO GO HOME. PT IS MEDICALLY CLEARED FOR D/C STABLE VITALS.
[2018-12-26 16:35] VITALS: BP 132/66
== END 2018-12-26 16:37 | disposition home or self-care (01) ==
LOC: ER 14:54
DX: E10.65 Type 1 diabetes mellitus with hyperglycemia (principal); I48.2 Chronic atrial fibrillation; E66.01 Morbid (severe) obesity due to excess calories; I11.0 Hypertensive heart disease with heart failure; I50.9 Heart failure, unspecified; I25.2 Old myocardial infarction; M10.9 Gout, unspecified; Z68.43 Body mass index [BMI] 50.0-59.9, adult; Z86.73 Personal history of transient ischemic attack (TIA), and cerebral infarction without residual deficits; Z98.890 Other specified postprocedural states; Z88.8 Allergy status to other drugs, medicaments and biological substances; Z79.899 Other long term (current) drug therapy; Z79.4 Long term (current) use of insulin
CPT/HCPCS: 36415; 71045; 80048; 83880; 84484; 85025; 85730; 93005; 96372; 99284; J1815

== ENCOUNTER 2019-05-11 02:20 | Emergency (ER) | payer OTHER ==
[~2019-05-11] VITALS: Ht 180.3 cm; Wt 158.8 kg
[2019-05-11 03:21] VITALS: BP 141/87
--- NOTE | 2019-05-11 03:21 | NUR ---
BIB SELF C/O DIZZINESS X8 HRS. AND KNEE PAIN AND SWELLING TO BED 2 RESCTING COMFOTABLY, SLEEPING, AWAITING MED EVAL
[2019-05-11] MEDS ORDERED: ACETAMINOPHEN 325 MG TABLET ONE (04:56)
[2019-05-11] MEDS ORDERED: ACETAMINOPHEN 325 MG TABLET PO ONE (05:00)
--- NOTE | 2019-05-11 05:02 | NUR ---
Patient discharged to home in stable condition. Written and verbal after care instructions given. Patient verbalizes understanding of instruction.
== END 2019-05-11 05:02 | disposition home or self-care (01) ==
LOC: ER 02:20
DX: M25.562 Pain in left knee (principal); I48.91 Unspecified atrial fibrillation; I10 Essential (primary) hypertension; E10.9 Type 1 diabetes mellitus without complications; M10.9 Gout, unspecified; K21.9 Gastro-esophageal reflux disease without esophagitis; E66.01 Morbid (severe) obesity due to excess calories; Z68.42 Body mass index [BMI] 45.0-49.9, adult; Z86.711 Personal history of pulmonary embolism; Z86.73 Personal history of transient ischemic attack (TIA), and cerebral infarction without residual deficits; Z98.890 Other specified postprocedural states; Z88.8 Allergy status to other drugs, medicaments and biological substances; Z79.899 Other long term (current) drug therapy; Z79.4 Long term (current) use of insulin

== ENCOUNTER 2019-05-22 10:26 | Emergency (ER) | payer OTHER ==
[~2019-05-22] VITALS: Ht 182.9 cm; Wt 168.7 kg
--- NOTE | 2019-05-22 10:28 | NUR ---
PT BIBRA [facility] FOR CHEST PAIN AND PALPITATION, PT IS AAOX4, NOT IN RESPIRATORY DISTRESS, HOOKED TO RIG MECHANIC, KEPT RESTED AND COMFORTABLE, WILL CONTINUE TO MONITOR.
--- NOTE | 2019-05-22 10:40 | NUR ---
PT SEEN AND EXAMINED BY .
--- NOTE | 2019-05-22 10:55 | NUR ---
IV LINE ESTABLISHED, BLOOD DRAWN AND SENT TO LAB.
--- NOTE | 2019-05-22 10:57 | NUR ---
SCHOOL BUSINESS MANAGER AT BEDSIDE FOR XRAY.
[2019-05-22 10:59] LABS: BASOPHILS # (AUTO) 0.2 /CMM (0.0-0.2); BASOPHILS % (AUTO) 2.4 % (0.0-2.0); EOSINOPHILS % (AUTO) 1.1 % (0.0-6.0); HEMATOCRIT 46 % (39-51); HEMOGLOBIN 16.3 g/dL (13.5-17.5); LYMPHOCYTES # (AUTO) 1.6 /CMM (0.8-4.8); LYMPHOCYTES % (AUTO) 22.4 % (20.0-44.0); MEAN CORPUSCULAR HGB CONC 35 g/dl (31.0-36.0); MEAN CORPUSCULAR VOLUME 90 fL (80-96); MONOCYTES # (AUTO) 0.4 /CMM (0.1-1.30); MONOCYTES % (AUTO) 5.3 % (2.0-12.0); NEUTROPHILS % (AUTO) 68.8 % (43.0-81.0); PLATELET COUNT (AUTO) 204 /CMM (150-450); RED BLOOD CELL COUNT(AUTO) 5.18 MIL/uL (4.5-6.0); WHITE BLOOD COUNT (AUTO) 7.3 K/uL (4.3-11.0)
[2019-05-22] MEDS ORDERED: DILTIAZEM HCL 25 MG IV ONE (11:01)
[2019-05-22] MEDS: DILTIAZEM HCL 50 MG IV IV ONE (11:05)
[2019-05-22 11:17] LABS: B-TYPE NATRIURETIC PEPTIDE 424 PG/ML (0-125); CALCIUM, SERUM 8.6 mg/dL (8.5-10.1); CARBON DIOXIDE 27 mmol/L (21-32); CHLORIDE 100 mmol/L (98-107); POTASSIUM 3.8 mmol/L (3.5-5.1); SODIUM SERUM 134 mmol/L (136-145); UREA NITROGEN, BLOOD 13 mg/dL (7-18)
[2019-05-22 11:19] LABS: GLUCOSE 370 mg/dL (74-106)
[2019-05-22 12:01] VITALS: BP 149/72
== END 2019-05-22 12:13 | disposition home or self-care (01) ==
LOC: ER 10:26
DX: I48.20 Chronic atrial fibrillation, unspecified (principal); E66.01 Morbid (severe) obesity due to excess calories; I10 Essential (primary) hypertension; E10.9 Type 1 diabetes mellitus without complications; M10.9 Gout, unspecified; Z68.43 Body mass index [BMI] 50.0-59.9, adult; Z86.73 Personal history of transient ischemic attack (TIA), and cerebral infarction without residual deficits; Z98.890 Other specified postprocedural states; Z88.8 Allergy status to other drugs, medicaments and biological substances; Z79.899 Other long term (current) drug therapy; Z79.4 Long term (current) use of insulin; Z79.84 Long term (current) use of oral hypoglycemic drugs
CPT/HCPCS: 36415; 71045; 80048; 83880; 84484; 85025; 93005; 96374; 99284; J3490

== ENCOUNTER 2020-02-18 13:52 | Inpatient (IN) | payer OTHER ==
[~2020-02-18] VITALS: Ht 182.9 cm; Wt 154.2 kg
[2020-02-18] VITALS: BP 132/72
--- NOTE | 2020-02-18 13:55 | NUR ---
PT BIBRA 61 FROM HOME C/O CHEST PAIN NON RADIATING STARTED 9AM. PT IS AAOX4, NOT IN RESPIRATORY DISTRESS, HOOKED TO CONFERENCE SERVICE COORDINATOR, KEPT RESTED AND COMFORTABLE. WILL CONTINUE TO MONITOR.
--- NOTE | 2020-02-18 14:05 | NUR ---
PT SEEN AND EXAMINED BY .
--- NOTE | 2020-02-18 14:17 | NUR ---
PIPE COVERING MOLDER AT BEDSIDE FOR XRAY.
--- NOTE | 2020-02-18 14:33 | NUR ---
DATABASE ADMINISTRATION ASSOCIATE AT BEDSIDE FOR XRAY.
[2020-02-18 14:58] LABS: BASOPHILS # (AUTO) 0.1 /CMM (0.0-0.2); BASOPHILS % (AUTO) 0.7 % (0.0-2.0); EOSINOPHILS % (AUTO) 0.9 % (0.0-6.0); HEMATOCRIT 50 % (39-51); HEMOGLOBIN 17.1 g/dL (13.5-17.5); LYMPHOCYTES # (AUTO) 2.1 /CMM (0.8-4.8); LYMPHOCYTES % (AUTO) 25.8 % (20.0-44.0); MEAN CORPUSCULAR HGB CONC 34 g/dl (31.0-36.0); MEAN CORPUSCULAR VOLUME 92 fL (80-96); MONOCYTES # (AUTO) 0.5 /CMM (0.1-1.30); MONOCYTES % (AUTO) 6.1 % (2.0-12.0); NEUTROPHILS # (AUTO) 5.4 /CMM (1.8-8.9); NEUTROPHILS % (AUTO) 66.5 % (43.0-81.0); PLATELET COUNT (AUTO) 226 /CMM (150-450); RED BLOOD CELL COUNT(AUTO) 5.47 MIL/uL (4.5-6.0); WHITE BLOOD COUNT (AUTO) 8.2 K/uL (4.3-11.0)
--- NOTE | 2020-02-18 15:00 | NUR ---
UNABLE TO ESTABLISHED IV LINE MD AWARE. MID LINE ADVICED BY .
[2020-02-18] MEDS ORDERED: PANT40TA49 PO (15:30)
[2020-02-18] MEDS ORDERED: MORPHINE SULFATE INJ 2 MG/ML DISP.SYRIN IV ONE (15:30)
[2020-02-18] MEDS ORDERED: CARV25TA2 PO (15:30)
[2020-02-18] MEDS ORDERED: ONDANSETRON HCL/PF 4 MG/2 ML VIAL IV ONE (15:30)
[2020-02-18 15:45] LABS: CHOLESTEROL 133 mg/dL (<200); HDL CHOLESTEROL 35 mg/dL (40-60); LDL 93 mg/dL (0-99); TRIGLYCERIDES 100 mg/dL (30-150)
[2020-02-18] MEDS ORDERED: DILTIAZEM HCL IV 125 MG in IV D5W 100 ML IV ONE (16:00)
[2020-02-18] MEDS ORDERED: DILTIAZEM HCL 25 MG IV IVP ONE (16:00)
[2020-02-18 16:21] LABS: CALCIUM, SERUM 8.9 mg/dL (8.5-10.1); CARBON DIOXIDE 20 mmol/L (21-32); CHLORIDE 94 mmol/L (98-107); MAGNESIUM 2.2 mg/dL (1.8-2.4); POTASSIUM 4.3 mmol/L (3.5-5.1); SODIUM SERUM 127 mmol/L (136-145); UREA NITROGEN, BLOOD 13 mg/dL (7-18)
[2020-02-18] MEDS ORDERED: ONDANSETRON HCL/PF 4 MG/2 ML VIAL ONE (16:26)
[2020-02-18] MEDS ORDERED: MORPHINE SULFATE INJ 4 MG/ML DISP.SYRIN ONE (16:26)
[2020-02-18 16:27] LABS: GLUCOSE 494 mg/dL (74-106)
[2020-02-18] MEDS ORDERED: DILTIAZEM HCL 25 MG IV ONE (16:27)
[2020-02-18 16:49] LABS: AMYLASE 21 U/L (25-115)
--- NOTE | 2020-02-18 17:08 | NUR ---
AT BEDSIDE FOR EVAL.
[2020-02-18] MEDS ORDERED: Z GUARD REMEDY 2 OZ OINT TP PRN (17:30)
[2020-02-18] MEDS ORDERED: MAGNESIUM HYDROXIDE 30 ML UDC PO PRN (17:30)
[2020-02-18] MEDS ORDERED: ACETAMINOPHEN 325 MG TABLET PO PRN (17:30)
[2020-02-18] MEDS ORDERED: ONDANSETRON HCL/PF 4 MG/2 ML VIAL IVP PRN (17:30)
[2020-02-18] MEDS ORDERED: MAG HYDROX/AL HYDROX/SIMETH 30 ML UDC PO PRN (17:30)
--- NOTE | 2020-02-18 17:57 | NUR ---
[facility] CALLED, NO BED AVAILABLE YET
--- NOTE | 2020-02-18 17:58 | NUR ---
TECH AT BEDSIDE FOR US.
--- NOTE | 2020-02-18 18:25 | NUR ---
NURSING SUP GAVE [phone].
--- NOTE | 2020-02-18 18:45 | NUR ---
REPORT GIVEN TO ROBERTO CARLOS BLANCO FOR DAYANARA.
--- NOTE | 2020-02-18 19:05 | NUR ---
REPORT GIVEN TO ROBERTO CARLOS LUCIANO FOR DAYANARA.
--- NOTE | 2020-02-18 19:16 | NUR ---
REC'D NEG COVID RESULTS. AWARE
[2020-02-18 19:45] VITALS: BP 112/73
--- NOTE | 2020-02-18 19:45 | NUR ---
BROADCAST OPERATIONS TECHNICIANDIRECTOR OF DIETARY NOTES RECEIVED FROM ER PER KANG VIA ACLS PROTOCOL ACCOMPANIED BY ER CREW,WITH CHIEF COMPLAINTS OF CHEST PAIN RADIATING TO THE BACK,DIAGNOSIS CHEST PAIN.ALERT,ORIENTED X4,CHEST PAIN MILD AND TOLERABLE,O2 IN USED AT 2L/NC,O2 SAT 97%.SR-73 ON TELE MONITOR.SALINE LOCK LEFT HAND INTACT AND PATENT.ORIENTED TO ROOM SET UP.CALL LIGHT IN REACH,NEEDS ANTICIPATED.
[2020-02-18 20:00] VITALS: BP 112/73
--- NOTE | 2020-02-18 20:00 | NUR ---
STRATEGIC ACCOUNT EXECUTIVE NOTES ACCU-CHECK BLOOD SUGAR CHECK 393,GIVEN INSULIN GLARGINE 80 UNITS ORDERED.SNACKS PROVIDED AT BEDSIDE.
--- NOTE | 2020-02-18 20:30 | NUR ---
DATABASE DESIGN ANALYST NOTES STARTED ON ELIQUIS 5MG PO ORDERED
[2020-02-18] MEDS: APIXABAN 5 MG TABLET PO SCH (20:32)
[2020-02-18] MEDS: ATORVASTATIN 10 MG TABLET PO SCH (20:33)
[2020-02-18] MEDS: INSULIN GLARGINE, 100 UNIT/ML CARTRIDGE SQ SCH (21:13)
[2020-02-18] MEDS ORDERED: INSULIN GLARGINE, 100 UNIT/ML CARTRIDGE SQ SCH (22:00)
[2020-02-18] MEDS: MORPHINE SULFATE INJ 2 MG/ML DISP.SYRIN IV PRN (23:25)
--- NOTE | 2020-02-18 23:25 | NUR ---
MISSILE INSPECTOR NOTES PAIN MANAGEMENT C/O CHEST PAIN 7-8 ON PAIN SCALE, MEDICATED WITH MORPHINE 2MG IV ORDERED.
[2020-02-18] MEDS ORDERED: *INSULIN REGULAR(HUMULIN R)HUM 100 UNIT/ML VIAL SQ PRN (23:30)
[2020-02-18] MEDS ORDERED: DEXTROSE 50%-WATER 50 ML DISP.SYRIN IV PRN (23:30)
[2020-02-19] VITALS: BP 132/72
--- NOTE | 2020-02-19 02:00 | NUR ---
ICU SPECIALIST NOTES SLEEPING THIS TIME
[2020-02-19 04:00] VITALS: BP 102/55
--- NOTE | 2020-02-19 06:38 | NUR ---
GAS FITTER HELPER NOTES SLEPT WELL WITH PAIN MANAGEMENT,CHEST PAIN IMPROVED.INSTRUCTED BREAKFAST TO BE HELD A LITTLE WHILE TILL SEEN BY DR ARNDT.IN NO ACUTE DISTRESS.
--- NOTE | 2020-02-19 06:46 | NUR ---
Spoke with RN at 0640 this morning. Please call Radiology at ext. [phone] when Consent form is obtained and a 20g IV is in the right or left AC. Midline is also acceptable if its CT approved. Radiology ready for CT Pulmonary Angiogram procedure.
--- NOTE | 2020-02-19 06:55 | NUR ---
DEMAND EQUIPMENT REPAIRER NOTES RADIATOR MECHANIC CALLED ASKING IF THIS PATIENT SIGNED CONSENT FOR PULMONARY CT ANGIOGRAM.I SAID NO,THERE'S NO ORDER AND ALSO ASK IF PATIENT HAS IV ACCESS,I SAID YES ON LEFT HAND.
--- NOTE | 2020-02-19 07:00 | NUR ---
TELEPHONE ANSWERING SERVICE OPERATOR NOTES CONSENT SIGNED FOR PULMONARY CT ANGIOGRAM.NEW SALINE LOCK PLACE ON LEFT FORE ARM #20 BY CHARGE NURSE AUGUST
--- NOTE | 2020-02-19 08:23 | NUR ---
telegraph office telephone clerk notes patient transferred to radiology.
[2020-02-19] MEDS ORDERED: IOHEXOL-350 100 ML VIAL IV ONE (08:32)
[2020-02-19 08:34] LABS: BASOPHILS % (AUTO) 0.6 % (0.0-2.0); EOSINOPHILS % (AUTO) 1.4 % (0.0-6.0); HEMATOCRIT 48 % (39-51); HEMOGLOBIN 16.4 g/dL (13.5-17.5); LYMPHOCYTES # (AUTO) 2.4 /CMM (0.8-4.8); LYMPHOCYTES % (AUTO) 33.3 % (20.0-44.0); MEAN CORPUSCULAR HGB CONC 34 g/dl (31.0-36.0); MEAN CORPUSCULAR VOLUME 90 fL (80-96); MONOCYTES # (AUTO) 0.5 /CMM (0.1-1.30); MONOCYTES % (AUTO) 6.8 % (2.0-12.0); NEUTROPHILS # (AUTO) 4.2 /CMM (1.8-8.9); NEUTROPHILS % (AUTO) 57.9 % (43.0-81.0); PLATELET COUNT (AUTO) 196 /CMM (150-450); RED BLOOD CELL COUNT(AUTO) 5.32 MIL/uL (4.5-6.0); WHITE BLOOD COUNT (AUTO) 7.3 K/uL (4.3-11.0)
[2020-02-19 08:46] LABS: ALBUMIN 3.4 g/dL (3.4-5.0); BILIRUBIN,TOTAL 0.7 mg/dL (0.2-1.0); CALCIUM, SERUM 8.6 mg/dL (8.5-10.1); MAGNESIUM 2.3 mg/dL (1.8-2.4); POTASSIUM 3.6 mmol/L (3.5-5.1); TOTAL PROTEIN, SERUM 7.2 g/dL (6.4-8.2)
[2020-02-19] MEDS ORDERED: DILTIAZEM HCL 30 MG TABLET PO SCH (09:00)
[2020-02-19] MEDS ORDERED: CARVEDILOL 12.5 MG TABLET PO SCH (09:00)
[2020-02-19] MEDS ORDERED: AMIODARONE HCL 200 MG TABLET PO SCH (09:00)
[2020-02-19] MEDS ORDERED: FUROSEMIDE 20 MG TABLET PO SCH (09:00)
[2020-02-19] MEDS: BLOOD SUGAR DIAGNOSTIC 1 EACH STRIP VI SCH ×4 (09:24→21:15)
[2020-02-19] MEDS: AMIODARONE HCL 200 MG TABLET PO SCH (09:25)
[2020-02-19 09:26] VITALS: BP 132/73
[2020-02-19] MEDS: PANTOPRAZOLE 40 MG TABLET.DR PO SCH (09:26)
[2020-02-19] MEDS: APIXABAN 5 MG TABLET PO SCH ×2 (09:26→16:48)
[2020-02-19] MEDS: DILTIAZEM HCL CD 240 MG PO SCH (09:27)
[2020-02-19] MEDS: LINAGLIPTIN 5 MG TABLET PO SCH (09:27)
[2020-02-19] MEDS: CARVEDILOL 12.5 MG TABLET PO SCH ×3 (09:28→16:47)
[2020-02-19] MEDS: INSULIN LISPRO/ASPART 100 UNIT/ML CARTRIDGE SQ SCH ×3 (09:40→17:44)
[2020-02-19 10:25] LABS: DIGOXIN < 0.20 ng/mL (0.90-2.00)
[2020-02-19] MEDS: INSULIN REGULAR, HUMAN 100 UNIT/ML 3 ML VIAL SQ PRN ×3 (11:37→21:26)
[2020-02-19] MEDS: DIGOXIN 0.125 MG TABLET PO SCH (12:25)
[2020-02-19] MEDS: MORPHINE SULFATE INJ 2 MG/ML DISP.SYRIN IV PRN ×3 (12:26→21:29)
[2020-02-19 16:11] VITALS: BP 108/62
--- NOTE | 2020-02-19 18:22 | NUR ---
CHIEF OF PEDIATRIC UROLOGY NOTES PATIENT IN BED RESTING NO SOB OR ACUTE DISTRESS NOTED. ALL DUE MEDICATIONS ADMINISTERED. ALL NEEDS MET. NO ACUTE CHANGES NOTED DURING SHIFT. PATIENTS BLOOD SUGAR MANAGED WITH MEDICATIONS AND INSULIN. BED IN LOW LOCKED POSITION. CALL LIGHT WITHIN REACH. WILL CONTINUE TO MONITOR.
--- NOTE | 2020-02-19 19:30 | NUR ---
HARNESS RIGGER NOTES RECEIVED ON BED SLEEPING,AROUSABLE TO VERBAL STIMULI,BREATHING REGULAR,NOT IN ANY FORM OF DISTRESS.SALINE LOCK X2 LEFT FORE ARM INTACT AND PATENT.MONITOR FOR CHEST PAIN,CALL LIGHT IN REACH,NEEDS ANTICIPATED.
[2020-02-19 20:00] VITALS: BP 128/64
[2020-02-19] MEDS: ATORVASTATIN 10 MG TABLET PO SCH (21:15)
--- NOTE | 2020-02-19 21:15 | NUR ---
DIRECTOR OF SOCIAL WORK NOTES ACCU-CHECK BLOOD SUGAR CHECK 197,COVERED WITH 3 UNITS HUMULIN R PER MODERATE SLIDING SCALE ALONG WITH LANTUS 80 UNITS BUT PATIENT REQUEST ONLY 40 UNITS THIS TIME.SNACKS PROVIDED AT BEDSIDE.
[2020-02-19] MEDS: INSULIN GLARGINE, 100 UNIT/ML CARTRIDGE SQ SCH (21:23)
--- NOTE | 2020-02-19 21:29 | NUR ---
BUYER GRAIN NOTES PAIN MANAGEMENT C/O CHEST PAIN 8/10 ON PAIN SCALE,MORPHINE 2MG IV GIVEN ORDERED.WILL CONTINUE TO MONITOR STATUS.
[2020-02-20] VITALS: BP 103/58
[2020-02-20 01:23] VITALS: BP 123/58
[2020-02-20] MEDS: MORPHINE SULFATE INJ 2 MG/ML DISP.SYRIN IV PRN (01:36)
--- NOTE | 2020-02-20 01:36 | NUR ---
MS RN NOTES PAIN MANAGEMENT C/O CHEST PAIN 7-8 ON PAIN SCALE.MEDICATED WITH MORPHINE 2MG IV ORDERED
[2020-02-20 04:00] VITALS: BP_SYST 122; BP_DIAS 7; BP_DIAS 70
[2020-02-20] MEDS: BLOOD SUGAR DIAGNOSTIC 1 EACH STRIP VI SCH ×2 (06:07→11:57)
[2020-02-20] MEDS: INSULIN REGULAR, HUMAN 100 UNIT/ML 3 ML VIAL SQ PRN ×2 (06:16→12:08)
--- NOTE | 2020-02-20 06:44 | NUR ---
INVOICE CLASSIFICATION CLERK NOTES ON BED SLEEPING.PAIN MANAGEMENT EFFECTIVE.DENIES CHEST PAIN.BLOOD SUGAR ELEVATED.IN NO ACUTE DISTRESS.WILL ENDORSE TO DAY NURSE FOR DAYANARA.
--- NOTE | 2020-02-20 07:30 | NUR ---
received pt. alert and oriented,but appears extremely groggy.vs stable.
[2020-02-20 08:00] VITALS: BP 112/63
[2020-02-20] MEDS: AMIODARONE HCL 200 MG TABLET PO SCH (09:00)
[2020-02-20] MEDS: DILTIAZEM HCL CD 240 MG PO SCH (09:00)
[2020-02-20] MEDS: CARVEDILOL 12.5 MG TABLET PO SCH (09:20)
[2020-02-20] MEDS: LINAGLIPTIN 5 MG TABLET PO SCH (09:20)
[2020-02-20] MEDS: PANTOPRAZOLE 40 MG TABLET.DR PO SCH (09:20)
[2020-02-20] MEDS: INSULIN LISPRO/ASPART 100 UNIT/ML CARTRIDGE SQ SCH ×2 (09:22→13:29)
[2020-02-20] MEDS: APIXABAN 5 MG TABLET PO SCH (09:22)
--- NOTE | 2020-02-20 10:30 | NUR ---
tele dc'd as per orders.dr. nieto in to see pt.
[2020-02-20] MEDS ORDERED: APIX5TAB PO (10:51)
[2020-02-20] MEDS ORDERED: AMIO200T7 PO (10:51)
[2020-02-20] MEDS ORDERED: DILT240C88 PO (10:51)
[2020-02-20] MEDS ORDERED: CARV12.52 PO (10:51)
--- NOTE | 2020-02-20 11:30 | NUR ---
dr. christiansen in and dc orders given.multiple pages of discharge papers given to pt. made aware of new meds and given entire med list.seems to comprehend all info.hep lock out.papers signed.
--- NOTE | 2020-02-20 12:30 | NUR ---
good appetite,sking for extra food.
[2020-02-20] MEDS: DIGOXIN 0.125 MG TABLET PO SCH (13:00)
--- NOTE | 2020-02-20 14:00 | NUR ---
taken to lobby by labor and delivery nurse via w/chair.pt. contacted [facility] for transportation.
[2020-02-20 16:00] VITALS: BP 83/42
== END 2020-02-20 14:00 | disposition home or self-care (01) | DRG 201 ==
LOC: ER 13:55 → TELE 19:23 → MED 02-20 08:38
PROVIDERS: ADMIT Internal Medicine; ATTEND Internal Medicine
DX: I48.91 Unspecified atrial fibrillation (principal); E11.65 Type 2 diabetes mellitus with hyperglycemia; I25.10 Atherosclerotic heart disease of native coronary artery without angina pectoris; I11.0 Hypertensive heart disease with heart failure; I50.32 Chronic diastolic (congestive) heart failure; K21.9 Gastro-esophageal reflux disease without esophagitis; E78.5 Hyperlipidemia, unspecified; E66.2 Morbid (severe) obesity with alveolar hypoventilation; I25.2 Old myocardial infarction; Z79.4 Long term (current) use of insulin; Z86.711 Personal history of pulmonary embolism; Z91.19 Patient's noncompliance with other medical treatment and regimen; Z86.73 Personal history of transient ischemic attack (TIA), and cerebral infarction without residual deficits; Z87.11 Personal history of peptic ulcer disease; Z68.42 Body mass index [BMI] 45.0-49.9, adult
CPT/HCPCS: 36415; 71045-TC; 80048-TC; 80053-TC; 80061-TC; 80162-TC; 82150-TC; 82962-TC; 83735-TC; 83880; 84100-TC; 84439-TC; 84443-TC; 84484-TC; 85025-TC; 85378-TC; 87081-TC; 93307-TC; C1751; G0378; J1815; J2270; J2405; J3490; J7060; Q9967

== ENCOUNTER 2020-03-14 13:34 | Emergency (ER) | payer OTHER ==
[~2020-03-14] VITALS: Ht 170.2 cm; Wt 163.3 kg
[~2020-03-14 13:34] MED LIST changes: -AMIO200T4 PO; +AMIO200T7 PO; +APIX5TAB PO; +CARV12.52 PO; +CARV25TA2 PO; -DABI150C PO; +DILT240C88 PO; -PANT20TA2 PO; +PANT40TA49 PO
--- NOTE | 2020-03-14 13:35 | NUR ---
PT BIBRA FROM HOME C/O HIGH BLOOD SUGAR 400'S. PT IS AAOX4, NOT IN RESPIRATORY DISTRESS, HOOKED TO MARKING CLERK, KEPT RESTED AND COMFORTABLE. WILL CONTINUE TO MONITOR.
--- NOTE | 2020-03-14 14:00 | NUR ---
SEEN AND EXAMINED BY .
[2020-03-14 14:42] LABS: ABG BASE EXCESS -2.7 mmol/L; ABG OXYGEN SATURATION 95.1 % (92.0-98.5); ABG PCO2 30.6 mmHg (35.0-45.0); ABG PH 7.434 (7.350-7.450); ABG PO2 76.7 mmHg (75.0-100.0); AaDO2 36.4 mmHg; COHb 0.8 % (0.5-1.5); MetHb 0.3 % (0.0-1.5); O2Hb 94.1 % (94.0-97.0); SITE, ABG Right Radial; VENT MODE, BG RA
--- NOTE | 2020-03-14 14:45 | NUR ---
IV LINE ESTABLISHED BLOOD DRAWN AND SENT TO LAB.
--- NOTE | 2020-03-14 14:47 | NUR ---
URINAL GIVEN UNABLE TO PROVIDE URINE SPECIMEN THIS TIME.
[2020-03-14 14:52] LABS: BASOPHILS % (AUTO) 0.6 % (0.0-2.0); EOSINOPHILS % (AUTO) 0.9 % (0.0-6.0); HEMATOCRIT 50 % (39-51); HEMOGLOBIN 17.3 g/dL (13.5-17.5); LYMPHOCYTES # (AUTO) 2.1 /CMM (0.8-4.8); LYMPHOCYTES % (AUTO) 27.5 % (20.0-44.0); MEAN CORPUSCULAR HGB CONC 35 g/dl (31.0-36.0); MEAN CORPUSCULAR VOLUME 90 fL (80-96); MONOCYTES # (AUTO) 0.5 /CMM (0.1-1.30); MONOCYTES % (AUTO) 6.2 % (2.0-12.0); NEUTROPHILS # (AUTO) 4.9 /CMM (1.8-8.9); NEUTROPHILS % (AUTO) 64.8 % (43.0-81.0); PLATELET COUNT (AUTO) 215 /CMM (150-450); RED BLOOD CELL COUNT(AUTO) 5.51 MIL/uL (4.5-6.0); WHITE BLOOD COUNT (AUTO) 7.6 K/uL (4.3-11.0)
[2020-03-14 15:04] LABS: MAGNESIUM 2.1 mg/dL (1.8-2.4)
[2020-03-14 15:07] LABS: ALANINE AMINOTRANSFERASE 38 U/L (12-78); ALBUMIN 3.8 g/dL (3.4-5.0); ALKALINE PHOSPHATASE 129 U/L (46-116); ASPARTATE AMINOTRANSFERASE 17 U/L (15-37); BILIRUBIN,DIRECT 0.2 mg/dL (0.0-0.2); BILIRUBIN,TOTAL 0.6 mg/dL (0.2-1.0); CARBON DIOXIDE 27 mmol/L (21-32); CHLORIDE 98 mmol/L (98-107); LIPASE 69 U/L (73-393); SODIUM SERUM 133 mmol/L (136-145); TOTAL PROTEIN, SERUM 7.7 g/dL (6.4-8.2); UREA NITROGEN, BLOOD 15 mg/dL (7-18)
[2020-03-14 15:08] LABS: GLUCOSE 356 mg/dL (74-106)
--- NOTE | 2020-03-14 16:28 | NUR ---
URINE SPECIMEN COLLECTED AND SENT TO LAB.
[2020-03-14 16:44] LABS: APPEARANCE,URINE Clear (CLEAR); BILIRUBIN,URINE Negative (NEGATIVE); BLOOD, URINE Negative Ery/uL (NEGATIVE); COLOR,URINE Yellow (YELLOW); KETONES,URINE Negative (NEGATIVE); LEUKOCYTE ESTERASE ,URINE Negative (NEGATIVE); NITRITE, URINE Negative (NEGATIVE); PH,URINE 5.5 (5.0-8.0); PROTEIN,URINE Negative (NEGATIVE); UGLUCOSE >=1000 mg/dL (NEGATIVE); UROBILINOGEN,URINE 0.2 EU/dL (0.2)
[2020-03-14 17:00] LABS: BACTERIA,URINE None seen /HPF (None Seen); RBC,URINE 0-2 /HPF (0-2); SQUAMOUS EPITHELIAL CELL,UR Few /HPF (None Seen); WBC,URINE 0-2 /HPF (0-3)
[2020-03-14] MEDS ORDERED: KETOROLAC TROMETHAMINE 15 MG/ML VIAL ONE (18:26)
[2020-03-14] MEDS ORDERED: INSULIN REGULAR, HUMAN 100 UNIT/ML 10 ML VIAL ONE (18:28)
[2020-03-14] MEDS ORDERED: INSULIN REGULAR, HUMAN 100 UNIT/ML 10 ML VIAL SQ ONE (18:30)
[2020-03-14] MEDS ORDERED: KETOROLAC TROMETHAMINE INJ 30 MG/ML VIAL IV ONE (18:30)
[2020-03-14 18:38] VITALS: BP 134/82
== END 2020-03-14 18:39 | disposition home or self-care (01) ==
LOC: ER 13:37
DX: K44.9 Diaphragmatic hernia without obstruction or gangrene (principal); E10.65 Type 1 diabetes mellitus with hyperglycemia; K76.0 Fatty (change of) liver, not elsewhere classified; N20.0 Calculus of kidney; I11.0 Hypertensive heart disease with heart failure; I50.9 Heart failure, unspecified; E78.5 Hyperlipidemia, unspecified; I25.10 Atherosclerotic heart disease of native coronary artery without angina pectoris; I25.2 Old myocardial infarction; M10.9 Gout, unspecified; I48.91 Unspecified atrial fibrillation; Z98.890 Other specified postprocedural states; Z88.8 Allergy status to other drugs, medicaments and biological substances; Z79.899 Other long term (current) drug therapy; Z79.4 Long term (current) use of insulin; Z79.84 Long term (current) use of oral hypoglycemic drugs
CPT/HCPCS: 36415; 36600 ×2; 71045; 74176; 76705; 80048; 80076; 81001; 82010; 82803; 82962; 83690; 83735; 84100; 84484; 85025; 85730; 96372; 96374; 99285; J1815; J1885; 81000-TC

== ENCOUNTER 2020-08-02 19:19 | Emergency (ER) | payer OTHER ==
[~2020-08-02] VITALS: Ht 182.9 cm; Wt 147.4 kg
[2020-08-02] MEDS ORDERED: MORPHINE SULFATE INJ 2 MG/ML DISP.SYRIN IV ONE ×2 (20:00→22:00)
[2020-08-02] MEDS ORDERED: IV NS 0.9% 1,000 ML BAG IV ONE (20:00)
[2020-08-02] MEDS ORDERED: ONDANSETRON HCL/PF 4 MG/2 ML VIAL IVP ONE (20:00)
[2020-08-02] MEDS ORDERED: MORPHINE SULFATE INJ 4 MG/ML DISP.SYRIN ONE ×2 (20:28→22:36)
[2020-08-02] MEDS ORDERED: ONDANSETRON HCL/PF 4 MG/2 ML VIAL ONE (20:29)
[2020-08-02 21:12] LABS: BASOPHILS # (AUTO) 0.1 /CMM (0.0-0.2); BASOPHILS % (AUTO) 0.7 % (0.0-2.0); EOSINOPHILS % (AUTO) 0.7 % (0.0-6.0); HEMATOCRIT 48 % (39-51); HEMOGLOBIN 15.9 g/dL (13.5-17.5); LYMPHOCYTES # (AUTO) 2.2 /CMM (0.8-4.8); LYMPHOCYTES % (AUTO) 24.4 % (20.0-44.0); MEAN CORPUSCULAR HGB CONC 33 g/dl (31.0-36.0); MEAN CORPUSCULAR VOLUME 92 fL (80-96); MONOCYTES # (AUTO) 0.5 /CMM (0.1-1.30); MONOCYTES % (AUTO) 5.7 % (2.0-12.0); NEUTROPHILS # (AUTO) 6.1 /CMM (1.8-8.9); NEUTROPHILS % (AUTO) 68.5 % (43.0-81.0); PLATELET COUNT (AUTO) 239 /CMM (150-450); RED BLOOD CELL COUNT(AUTO) 5.17 MIL/uL (4.5-6.0); WHITE BLOOD COUNT (AUTO) 8.9 K/uL (4.3-11.0)
[2020-08-02 22:00] LABS: ALANINE AMINOTRANSFERASE 39 U/L (12-78); ALBUMIN 3.7 g/dL (3.4-5.0); ALKALINE PHOSPHATASE 98 U/L (46-116); ASPARTATE AMINOTRANSFERASE 24 U/L (15-37); BILIRUBIN,DIRECT 0.2 mg/dL (0.0-0.2); BILIRUBIN,TOTAL 0.8 mg/dL (0.2-1.0); CALCIUM, SERUM 9.2 mg/dL (8.5-10.1); CARBON DIOXIDE 29 mmol/L (21-32); CHLORIDE 99 mmol/L (98-107); GLUCOSE 269 mg/dL (74-106); POTASSIUM 4.1 mmol/L (3.5-5.1); SODIUM SERUM 138 mmol/L (136-145); TOTAL PROTEIN, SERUM 8.2 g/dL (6.4-8.2); UREA NITROGEN, BLOOD 13 mg/dL (7-18)
[2020-08-03 00:26] VITALS: BP 150/90
== END 2020-08-03 00:39 | disposition home or self-care (01) ==
LOC: ER 19:19
DX: R53.1 Weakness (principal); Z20.828 Contact with and (suspected) exposure to other viral communicable diseases; M54.5 Low back pain; M46.1 Sacroiliitis, not elsewhere classified; E10.65 Type 1 diabetes mellitus with hyperglycemia; Z88.8 Allergy status to other drugs, medicaments and biological substances; Z79.01 Long term (current) use of anticoagulants; Z79.899 Other long term (current) drug therapy; E66.01 Morbid (severe) obesity due to excess calories; Z68.41 Body mass index [BMI] 40.0-44.9, adult; I25.10 Atherosclerotic heart disease of native coronary artery without angina pectoris; I25.2 Old myocardial infarction; Z86.73 Personal history of transient ischemic attack (TIA), and cerebral infarction without residual deficits; E78.5 Hyperlipidemia, unspecified; Z86.711 Personal history of pulmonary embolism; M10.9 Gout, unspecified; I11.0 Hypertensive heart disease with heart failure; I50.9 Heart failure, unspecified
CPT/HCPCS: 36415; 70450; 71045; 72110; 80048; 80076; 83880; 84484; 85025; 85378; 85730; 93005; 96361; 96374; 96375; 96376; 99285; C9803; J2270 ×2; J2405; J7030; U0003